=== PATIENT | male | born 1940 | race Caucasian/White ===

== ENCOUNTER 2019-03-20 22:37 | Emergency (ER) | payer OTHER, BC ==
--- NOTE | 2019-03-20 22:52 | PDOC ---
History of Present Illness - General Stated Complaint: DIARHHEA Time Seen by Provider: 03/20/19 22:43 History Source: Patient Exam Limitations: No Limitations - History of Present Illness Initial Comments: 03/20/19 22:44 [id number] with h/o dementia (reportedly non-adherent to medications), HTN, HLD, NIDDM, hyponatremia, current smoker, prior family-reported EtOH use disorder, who was BIBEMS after his daughters called for reported failure to thrive, inability to take care of himself, c/f multiple lesions on his arms, urinating and defacating on himself accidentally, all ongoing and worsening over the past year. They state they have contacted his PCP who has seen him recently and has been prescribing medication that the patient does not take. They also express concern that he is always drinking EtOH. He lives at home with his (who is disabled) and his daughters who feel increasingly unable to take care of him. EMS notes that he was disheveled and unkempt and daughters were concerned enough by his AMS to call his PCP Dr. Saba gamboa, who recommended he be brought to the ED. The patient himself denies any complaints. He denies any recent f/c/n/v/d/c, black/bloody/white stool, abdominal pain, chest pain, SOB, headache, lightheadedness, new back pain, or any other symptoms. The patient is otherwise a poor historian. Past History - Past Medical History Allergies/Adverse Reactions: Allergies Allergy/AdvReac Type Severity Reaction Status Date / Time No Known Allergies Allergy Verified 12/09/14 13:30 Home Medications: Ambulatory Orders Simvastatin [Zocor -] 20 mg PO HS 12/09/14 Atenolol/Chlorthalidone [Atenolol-Chlorthalidone 50-25] 1 each PO DAILY Gabapentin 300 mg PO DAILY 03/20/19 Haloperidol 0.5 mg PO DAILY 03/20/19 Pioglitazone HCl 30 mg PO DAILY 03/20/19 Tiotropium [place] [Spiriva] 18 mcg IH DAILY 03/20/19 GI Disorders: Yes (constipation) HTN: Yes Hypercholesterolemia: Yes - Suicide/Smoking/Psychosocial Hx Smoking History: Current every day smoker Have you smoked in the past 12 months: Yes Number of Cigarettes Smoked Daily: 10 'Breaking Loose' booklet given: 12/09/14 Hx Alcohol Use: Yes Substance Use Type: Alcohol Review of Systems - Review of Systems Able to Perform ROS?: No (dementia) *Physical Exam - Physical Exam Comments: 03/20/19 23:32 GENERAL: pleasant and conversive but disheveled, unkempt, malodorous, no distress, answers questions appropriately HEENT: PERRLA, EOMI, dry mucous membranes NECK/BACK: no midline ttp, no spinal stepoff or deformity, no hematoma, full ROM , neck supple CARDIOVASCULAR: regular rate/rhythm, normal S1S2, no MGR, strong peripheral pulses, capillary refill <2 seconds, extremities wwp, no edema LUNGS/RESPIRATORY: no respiratory distress, b/l faint expiratory wheezes GI/ABDOMEN: protuberant, symmetric [id number], normoactive BS, no ttp, no midline pulsatile masses : no CVA tenderness EXTREMITIES: no muscle atrophy, no acute deformity SKIN: warm and dry, no pallor, no jaundice, no rash, subcutaneous bleeding seen to BUE, also scattered excoriations to upper arms but no significant erythema, warmth, induration, fluctuance, etc. NEUROLOGICAL: GCS 15, CN II-XII grossly intact, 5/5 strength proximally and distally, no facial droop, seen walking to the bathroom with cane but otherwise normal gait Heart Score/ECG Review #1 03/20/19 23:35 Sinus rhythm with rate 89 and PACs, left axis deviation, RBBB, LAFB, no ST-T changes, no change from prior ED Treatment Course - LABORATORY CBC & Chemistry Diagram: 03/20/19 23:20 03/20/19 23:20 Medical Decision Making - Medical Decision Making 03/20/19 23:39 Elderly Pt p/w Initial Vital Signs Temp Pulse Resp BP Pulse Ox 98.3 F 98 H 20 140/74 97 03/20/19 23:07 03/20/19 23:07 03/20/19 23:07 03/20/19 23:07 03/20/19 23:07 Exam: As noted in Physical Exam section. DDX IBNLT: progression of dementia, CVA/TIA, infectious process (UTI, pyelonephritis, PNA/bronchitis, skin infection, meningitis), medication non- adherence, ACS, malignancy, etc. W/U ordered: Labs as noted below, EKG, CXR, HCT TX ordered: IVF, Motrin EKG: Reviewed; results as noted in ECG Review section. CXR: HCT: Labs: Reassessment: Repeat VS: ADMIT The Pt is unsafe for discharge at this time. They require further hospital observation, workup, and treatment. Microblog sent to [facility] for admission. Blank Decision to Admit order is placed per ED protocol. *DC/Admit/Observation/Transfer Diagnosis at time of Disposition: Encounter for medical screening examination - Discharge Dispostion Disposition: HOME Condition at time of disposition: Stable Decision to Admit order: No - Referrals Referrals: Ned Walter MD [Staff Physician] - - Patient Instructions Additional Instructions: You were seen in the ER because of concerns for your wellbeing, your health, and your hygeine. We did laboratory work, an EKG, a head CT, and a chest X-ray and there were no emergency findings on any of these studies. We gave you IV fluids, which you took, and we offered you IV vitamins, which you decided to refuse. After our assessment, we do not believe there is a medical emergency at this time, and we believe it is safe to go home. Please follow up with your primary care provider in 1-3 days. Call their clinic as soon as possible, tell them you were seen in the ER, and tell them you need an appointment. If there are any new or worsening symptoms, please come back to the ER at any time (24 hours a day). If the symptoms appear severe or life-threatening, please call 911 to have an ambulance take you to the ER. You need to have an appointment with Dr. Walter with your family there to help create a better plan for your health care. During this appointment, you need to have your family members be part of the discussion with yourself and Dr. Walter. You need to shower once every 2 days and wash your clothing because you are putting yourself at risk for infection by not doing this. Decrease the amount of alcohol you are drinking, and instead drink plenty of water and other fluids. Eat a healthy, balanced diet, take all of your prescribed medications as directed, and go to regular doctor's appointments. - Post Discharge Activity
[2019-03-20] MEDS ORDERED: SODIUM CHLORIDE 0.9% 500 ML INFUS.BAG IV ONE (22:56)
[2019-03-20 23:27] VITALS: BP 140/74; PULSE 98; TEMP 98.3; BMI 25.0
[2019-03-20 23:32] LABS: EOS % 3.3 % (0-4.5); HEMATOCRIT 45.6 % (35.4-49); HEMOGLOBIN 15.2 GM/dL (11.7-16.9); LYMPH % 12.4 % (8-40); MCH 33.2 pg (25.7-33.7); MCHC 33.3 g/dl (32.0-35.9); MEAN CELL VOLUME 99.7 fl (80-96); MONO % 7.2 % (3.8-10.2); NEUT % 76.1 % (42.8-82.8); PLATELET COUNT 154 K/MM3 (134-434); RBC 4.58 M/mm3 (4.00-5.60); RDW 14.3 % (11.9-15.9); WHITE BLOOD COUNT 9.1 K/mm3 (4.0-10.0)
[2019-03-20 23:47] LABS: INR 1.06 (0.83-1.09); PROTHROMBIN TIME (PATIENT) 12.5 SEC (9.7-13.0)
[2019-03-20 23:58] LABS: ALBUMIN 3.9 g/dl (3.4-5.0); BILIRUBIN,TOTAL 0.5 mg/dL (0.2-1); BLOOD UREA NITROGEN 13.5 mg/dL (7-18); CALCIUM 9.3 mg/dL (8.5-10.1); CREATININE 0.9 mg/dL (0.55-1.3); POTASSIUM 4.3 mmol/L (3.5-5.1); TOT PROT 7.8 g/dl (6.4-8.2)
--- NOTE | 2019-03-21 00:19 | PDOC ---
Documentation entered by Aisha Becerra SCRIBE, acting as scribe for Katalina Conley MD. Katalina Conley MD: This documentation has been prepared by the Mariam elliott Nirvannie, SCRIBE, under my direction and personally reviewed by me in its entirety. I confirm that the documentation accurately reflects all work, treatment, procedures, and medical decision making performed by me. Attending Attestation - Resident Resident Name: Marla Quevedo - ED Attending Attestation I have performed the following: I have examined & evaluated the patient, The case was reviewed & discussed with the resident, I agree w/resident's findings & plan - HPI HPI: 03/20/19 23:16 The patient is a 78 year old male, with a significant past medical history of dementia, HTN, HLD, hyponatremia, and former alcohol abuse, who presents to the emergency department with, AMS. As per EMS, daughters called 911 after noticing him disheveled and called his PCP Dr. Walter who advised him to the ED. Daughters notes today he urinated and defecated on himself and did not clean himself after the episode. He denies chest pain or shortness of breath. Allergies: NKDA - Physicial Exam PE: 03/21/19 00:02 GENERAL: Awake, alert, and fully oriented, in no acute distress HEAD: No signs of trauma EYES: PERRLA, EOMI, sclera anicteric, conjunctiva clear ENT: Auricles normal inspection, hearing grossly normal, nares patent, oropharynx clear without exudates. Moist mucosa NECK: Normal ROM, supple, no lymphadenopathy, JVD, or masses LUNGS: Breath sounds equal, clear to auscultation bilaterally. No wheezes, and no crackles HEART: Regular rate and rhythm, normal S1 and S2, no murmurs, rubs or gallops ABDOMEN: Soft, nontender, normoactive bowel sounds. No guarding, no rebound. No masses EXTREMITIES: Normal range of motion, no edema. No clubbing or cyanosis. No cords, erythema, or tenderness NEUROLOGICAL: Cranial nerves II through XII grossly intact. Normal speech SKIN: Warm, Dry, normal turgor, no rashes or lesions noted. - Medical Decision Making 03/21/19 00:19 Referring Physician: NOE ZIMMERMAN Patient Name: CAMILA MENDOZA THIS IS A PRELIMINARY REPORT FROM [facility] DATE OF SERVICE: 2019-03-20 23:52:26 IMAGES: 150 EXAM: CT HEAD WITHOUT CONTRAST No acute brain parenchymal abnormality. No hemorrhage, mass or acute territorial infarct. Atrophy and minimal chronic small vessel ischemic changes. Clear visualized paranasal sinuses. Visualized mastoid air cells clear. 03/21/19 00:20 All labs normal. 03/21/19 03:55 Pt has normal UA and he will be discharged home with the family. He is refusing to stay in the hospital and he is refusing alcohol detox.
[2019-03-21 01:31] LABS: EPI CELLS 0.9 /HPF (0-5/HPF); HYALINE CASTS 3 /lpf (0-8); URINE APPEARANCE CLEAR; URINE BACTERIA 2.5 /hpf (NEGATIVE); URINE BILIRUBIN NEGATIVE (NEGATIVE); URINE COLOR DK YELLOW; URINE GLUCOSE (UA) NEGATIVE (NEGATIVE); URINE KETONE 1+ (NEGATIVE); URINE LEUK ESTERASE TRACE (NEGATIVE); URINE NITRITE NEGATIVE (NEGATIVE); URINE PROTEIN TRACE (NEGATIVE); URINE RBC 2 /hpf (0-4); URINE WBC 2 /hpf (0-5)
[2019-03-21] MEDS ORDERED: FOLIC ACID INJECTION - 1 MG, THIAMINE HCL 100 MG, MULTIVIT INJECTION ADULT 10 ML in SOD... IVPB ONE (01:34)
--- NOTE | 2019-03-21 09:22 | EKG ---
Test Reason : Blood Pressure : / mmHG Vent. Rate : 089 BPM Atrial Rate : 089 BPM P-R Int : 154 ms QRS Dur : 100 ms QT Int : 392 ms P-R-T Axes : 099 -54 063 degrees QTc Int : 476 ms POOR DATA QUALITY, INTERPRETATION MAY BE ADVERSELY AFFECTED SINUS RHYTHM WITH PREMATURE ATRIAL COMPLEXES INCOMPLETE RIGHT BUNDLE BRANCH BLOCK LEFT ANTERIOR FASCICULAR BLOCK CANNOT RULE OUT ANTERIOR INFARCT , AGE UNDETERMINED ABNORMAL ECG WHEN COMPARED WITH ECG OF 11-DEC-2014 09:20, COMPARED TO EKG NO SIGNIFICANT CHANGE IS FOUND Confirmed by WILY CERRATO MD ([id number]) on 03/21/2019 9:21:55 AM Referred By: Confirmed By:WILY CERRATO MD
== END 2019-03-21 02:46 | disposition home or self-care (01) ==
LOC: JER 22:37
PROC: 3E0337Z Introduction of Electrolytic and Water Balance Substance into Peripheral Vein, Percutaneous Approach (ICD-10-PCS; principal; 2019-03-20)
DX: Z13.9 Encounter for screening, unspecified (principal); I10 Essential (primary) hypertension; E78.5 Hyperlipidemia, unspecified; E11.9 Type 2 diabetes mellitus without complications; E87.1 Hypo-osmolality and hyponatremia; F17.210 Nicotine dependence, cigarettes, uncomplicated
CPT/HCPCS: 36415; 70450-TC; 71045-TC-FY; 80053; 80307; 81003; 84484; 85025; 85610; 93005; 93010; 99283-25; J7030

== ENCOUNTER 2020-12-03 09:50 | Inpatient (IN) | payer OTHER, BC ==
[2020-12-03 11:34] LABS: BASO % 1.5 % (0-2.0); EOS % 3.6 % (0-4.5); HEMATOCRIT 36.9 % (35.4-49); HEMOGLOBIN 12.5 GM/dL (11.7-16.9); MCH 30.3 pg (25.7-33.7); MCHC 33.8 g/dl (32.0-35.9); MEAN CELL VOLUME 89.6 fl (80-96); MEAN PLT VOLUME 10.4 fl (7.5-11.1); MONO % 10.2 % (3.8-10.2); NEUT % 68.7 % (42.8-82.8); PLATELET COUNT 231 K/MM3 (134-434); RBC 4.12 M/mm3 (4.00-5.60); RDW 16.1 % (11.9-15.9)
[2020-12-03 11:43] LABS: INR 1.18 (0.83-1.09); PROTHROMBIN TIME (PATIENT) 14.2 SEC (9.7-13.0)
[2020-12-03 11:45] LABS: ACTIVATED PTT 33.1 SECONDS (25.2-36.5)
[2020-12-03 12:05] LABS: CALCIUM 9.6 mg/dL (8.5-10.1)
[2020-12-03 12:06] LABS: ALBUMIN 3.6 g/dl (3.4-5.0); BLOOD UREA NITROGEN 13.7 mg/dL (7-18)
[2020-12-03 12:09] LABS: CREATININE 0.7 mg/dL (0.55-1.3)
[2020-12-03 12:10] LABS: BILIRUBIN,TOTAL 0.8 mg/dL (0.2-1)
[2020-12-03 12:11] LABS: TOT PROT 7.7 g/dl (6.4-8.2)
[2020-12-03] MEDS ORDERED: SODIUM CHLORIDE 0.9% 500 ML INFUS.BAG IV ONE (12:51)
[2020-12-03] MEDS ORDERED: VANCOMYCIN 1,000 MG in DEXTROSE 5%-WATER - 250 ML IVPB ONE (12:51)
[2020-12-03] MEDS ORDERED: PIPERACILLIN/TAZOB 4.5 GM 4.5 GM in DEXTROSE 5%-WATER 100 ML IVPB ONE (12:51)
[2020-12-03 13:05] LABS: ERYTHROCYTE SEDIMENTATION RATE 78 mm/hr (0-20)
[2020-12-03] MEDS ORDERED: PIPERACILLIN/TAZOB 4.5 GM 4.5 GM/100 ML BAG IVPB ONE (13:36)
[2020-12-03] MEDS ORDERED: VANCOMYCIN 1 GRAM (PRE-DOCKED) 1,000 MG/250 ML BAG IVPB ONE (13:37)
[2020-12-03] MEDS: HEPARIN NA (PORCINE) 5,000 UNITS/ML 1ML VIAL SQ SCH (19:59)
[2020-12-04 01:24] VITALS: BMI 23.6
[2020-12-04] MEDS ORDERED: CEFAZOLIN 1 GM in DEXTROSE 5%-WATER - 50 ML IVPB SCH (02:00)
[2020-12-04] MEDS: HEPARIN NA (PORCINE) 5,000 UNITS/ML 1ML VIAL SQ SCH ×3 (02:36→21:31)
[2020-12-04] MEDS ORDERED: DEXTROSE 5%-WATER - 50 ML IVPB ONE ×2 (02:47→11:11)
[2020-12-04] MEDS: CEFTRIAXONE 2 GM in DEXTROSE 5%-WATER - 2 GM/50 ML IVPB IVPB SCH ×2 (02:55→11:23)
[2020-12-04 08:53] LABS: BASO % 1.2 % (0-2.0); EOS % 4.8 % (0-4.5); HEMOGLOBIN 11.2 GM/dL (11.7-16.9); LYMPH % 20.6 % (8-40); MCH 30.4 pg (25.7-33.7); MCHC 34.1 g/dl (32.0-35.9); MEAN CELL VOLUME 89.1 fl (80-96); MEAN PLT VOLUME 10.2 fl (7.5-11.1); MONO % 11.2 % (3.8-10.2); NEUT % 62.2 % (42.8-82.8); PLATELET COUNT 196 K/MM3 (134-434); WHITE BLOOD COUNT 6.7 K/mm3 (4.0-10.0)
[2020-12-04 09:28] LABS: ALBUMIN 2.8 g/dl (3.4-5.0); BLOOD UREA NITROGEN 13.3 mg/dL (7-18); CALCIUM 9.1 mg/dL (8.5-10.1)
[2020-12-04 09:29] LABS: MAGNESIUM 1.6 mg/dL (1.8-2.4)
[2020-12-04 09:32] LABS: CREATININE 0.5 mg/dL (0.55-1.3); PHOSPHOROUS 3.6 mg/dL (2.5-4.9)
[2020-12-04 09:33] LABS: BILIRUBIN,TOTAL 0.5 mg/dL (0.2-1); TOT PROT 6.6 g/dl (6.4-8.2)
[2020-12-04] MEDS ORDERED: MAGNESIUM 1GM/D5W - 1 GM/100 ML IVPB IVPB ONE (10:00)
[2020-12-04] MEDS: ATORVASTATIN CA 10 MG TABLET (FP) PO SCH (21:31)
[2020-12-04] MEDS: QUEtiapine FUMARATE 25 MG TABLET PO SCH (21:31)
[2020-12-05] MEDS: HEPARIN NA (PORCINE) 5,000 UNITS/ML 1ML VIAL SQ SCH ×3 (06:00→21:02)
[2020-12-05 08:13] LABS: HEMATOCRIT 34.1 % (35.4-49); HEMOGLOBIN 11.5 GM/dL (11.7-16.9); MCH 30.3 pg (25.7-33.7); MCHC 33.7 g/dl (32.0-35.9); MEAN CELL VOLUME 89.9 fl (80-96); MEAN PLT VOLUME 10.4 fl (7.5-11.1); PLATELET COUNT 190 K/MM3 (134-434); RBC 3.79 M/mm3 (4.00-5.60); WHITE BLOOD COUNT 5.1 K/mm3 (4.0-10.0)
[2020-12-05] MEDS ORDERED: DEXTROSE 5%-WATER - 50 ML IVPB ONE (08:31)
[2020-12-05 08:35] LABS: ALBUMIN 2.8 g/dl (3.4-5.0); BLOOD UREA NITROGEN 14.8 mg/dL (7-18)
[2020-12-05 08:38] LABS: CREATININE 0.5 mg/dL (0.55-1.3); PHOSPHOROUS 3.8 mg/dL (2.5-4.9)
[2020-12-05 08:39] LABS: BILIRUBIN,TOTAL 0.4 mg/dL (0.2-1)
[2020-12-05 08:40] LABS: TOT PROT 6.7 g/dl (6.4-8.2)
[2020-12-05] MEDS: ZINC OXIDE/PANTHENOL/VITAMIN E 56 GM TUBE TP SCH (09:31)
[2020-12-05] MEDS: CEFTRIAXONE 2 GM in DEXTROSE 5%-WATER - 2 GM/50 ML IVPB IVPB SCH (09:41)
[2020-12-05] MEDS: CYANOCOBALAMIN 1,000 MCG TABLET (FP) PO SCH (09:42)
[2020-12-05] MEDS: QUEtiapine FUMARATE 25 MG TABLET PO SCH ×2 (09:42→21:02)
[2020-12-05] MEDS: CLOTRIMAZOLE 1% CREAM 15 GM TUBE TP SCH ×2 (11:11→21:03)
[2020-12-05] MEDS: ATORVASTATIN CA 10 MG TABLET (FP) PO SCH (21:03)
[2020-12-06] MEDS: HEPARIN NA (PORCINE) 5,000 UNITS/ML 1ML VIAL SQ SCH ×3 (05:41→22:24)
[2020-12-06] MEDS ORDERED: DEXTROSE 5%-WATER - 50 ML IVPB ONE (08:52)
[2020-12-06] MEDS: CLOTRIMAZOLE 1% CREAM 15 GM TUBE TP SCH ×2 (09:36→22:26)
[2020-12-06] MEDS: ZINC OXIDE/PANTHENOL/VITAMIN E 56 GM TUBE TP SCH (09:36)
[2020-12-06] MEDS: CEFTRIAXONE 2 GM in DEXTROSE 5%-WATER - 2 GM/50 ML IVPB IVPB SCH (09:37)
[2020-12-06] MEDS: CYANOCOBALAMIN 1,000 MCG TABLET (FP) PO SCH (09:37)
[2020-12-06] MEDS: QUEtiapine FUMARATE 25 MG TABLET PO SCH ×2 (09:37→22:24)
[2020-12-06] MEDS: COLLAGENASE CLOSTRIDIUM HIST. 30 GRAMS TUBE TP SCH (09:38)
[2020-12-06] MEDS: AMINO ACIDS/PROTEIN HYDROLYS 30 ML LIQUID.PKT PO SCH (16:40)
[2020-12-06] MEDS: ATORVASTATIN CA 10 MG TABLET (FP) PO SCH (22:24)
[2020-12-07] MEDS: HEPARIN NA (PORCINE) 5,000 UNITS/ML 1ML VIAL SQ SCH ×3 (05:23→20:59)
[2020-12-07] MEDS ORDERED: DEXTROSE 5%-WATER - 50 ML IVPB ONE (08:55)
[2020-12-07] MEDS: MULTIVITAMINS (DAILY MVI) TABLET (FP) PO SCH (09:05)
[2020-12-07] MEDS: CEFTRIAXONE 2 GM in DEXTROSE 5%-WATER - 2 GM/50 ML IVPB IVPB SCH (09:05)
[2020-12-07] MEDS: AMINO ACIDS/PROTEIN HYDROLYS 30 ML LIQUID.PKT PO SCH ×2 (09:05→17:31)
[2020-12-07] MEDS: CYANOCOBALAMIN 1,000 MCG TABLET (FP) PO SCH (09:05)
[2020-12-07] MEDS: QUEtiapine FUMARATE 25 MG TABLET PO SCH ×2 (09:05→21:01)
[2020-12-07] MEDS: ZINC OXIDE/PANTHENOL/VITAMIN E 56 GM TUBE TP SCH (09:06)
[2020-12-07] MEDS: COLLAGENASE CLOSTRIDIUM HIST. 30 GRAMS TUBE TP SCH (09:07)
[2020-12-07] MEDS: CLOTRIMAZOLE 1% CREAM 15 GM TUBE TP SCH ×2 (09:07→21:02)
[2020-12-07] MEDS ORDERED: ACETAMINOPHEN 325 MG TABLET (FP) PO PRN (16:03)
[2020-12-07] MEDS ORDERED: PT OWN MED DRAWER 7, Y5N ONE (20:43)
[2020-12-07] MEDS: ATORVASTATIN CA 10 MG TABLET (FP) PO SCH (21:00)
[2020-12-08] MEDS: HEPARIN NA (PORCINE) 5,000 UNITS/ML 1ML VIAL SQ SCH ×3 (05:56→22:01)
[2020-12-08 08:24] LABS: HEMATOCRIT 36.8 % (35.4-49); HEMOGLOBIN 12.4 GM/dL (11.7-16.9); MCH 30.2 pg (25.7-33.7); MCHC 33.7 g/dl (32.0-35.9); MEAN CELL VOLUME 89.8 fl (80-96); MEAN PLT VOLUME 10.4 fl (7.5-11.1); PLATELET COUNT 188 K/MM3 (134-434); RDW 16.1 % (11.9-15.9)
[2020-12-08] MEDS ORDERED: DEXTROSE 5%-WATER - 50 ML IVPB ONE (08:38)
[2020-12-08 08:49] LABS: ALBUMIN 3.2 g/dl (3.4-5.0); CALCIUM 9.4 mg/dL (8.5-10.1)
[2020-12-08 08:51] LABS: BLOOD UREA NITROGEN 18.8 mg/dL (7-18); MAGNESIUM 2.1 mg/dL (1.8-2.4)
[2020-12-08 08:54] LABS: CREATININE 0.7 mg/dL (0.55-1.3); PHOSPHOROUS 3.9 mg/dL (2.5-4.9)
[2020-12-08 08:55] LABS: BILIRUBIN,TOTAL 0.4 mg/dL (0.2-1); TOT PROT 7.3 g/dl (6.4-8.2)
[2020-12-08] MEDS: CEFTRIAXONE 2 GM in DEXTROSE 5%-WATER - 2 GM/50 ML IVPB IVPB SCH (09:13)
[2020-12-08] MEDS: CYANOCOBALAMIN 1,000 MCG TABLET (FP) PO SCH (09:15)
[2020-12-08] MEDS: MULTIVITAMINS (DAILY MVI) TABLET (FP) PO SCH (09:15)
[2020-12-08] MEDS: AMINO ACIDS/PROTEIN HYDROLYS 30 ML LIQUID.PKT PO SCH ×2 (09:16→16:53)
[2020-12-08] MEDS: ZINC OXIDE/PANTHENOL/VITAMIN E 56 GM TUBE TP SCH (09:17)
[2020-12-08] MEDS: CLOTRIMAZOLE 1% CREAM 15 GM TUBE TP SCH ×2 (09:19→22:01)
[2020-12-08] MEDS: COLLAGENASE CLOSTRIDIUM HIST. 30 GRAMS TUBE TP SCH (09:19)
[2020-12-08] MEDS: QUEtiapine FUMARATE 25 MG TABLET PO SCH ×2 (09:20→22:00)
[2020-12-08] MEDS: ATORVASTATIN CA 10 MG TABLET (FP) PO SCH (22:00)
[2020-12-09] MEDS: HEPARIN NA (PORCINE) 5,000 UNITS/ML 1ML VIAL SQ SCH ×3 (05:12→22:13)
[2020-12-09 07:34] LABS: HEMATOCRIT 36.1 % (35.4-49); MCH 29.9 pg (25.7-33.7); MCHC 33.3 g/dl (32.0-35.9); MEAN CELL VOLUME 89.6 fl (80-96); MEAN PLT VOLUME 10.5 fl (7.5-11.1); PLATELET COUNT 172 K/MM3 (134-434); RBC 4.03 M/mm3 (4.00-5.60); WHITE BLOOD COUNT 6.7 K/mm3 (4.0-10.0)
[2020-12-09 08:00] LABS: BLOOD UREA NITROGEN 23.2 mg/dL (7-18); CALCIUM 9.3 mg/dL (8.5-10.1); MAGNESIUM 1.9 mg/dL (1.8-2.4)
[2020-12-09 08:04] LABS: CREATININE 0.6 mg/dL (0.55-1.3); PHOSPHOROUS 3.8 mg/dL (2.5-4.9)
[2020-12-09] MEDS ORDERED: DEXTROSE 5%-WATER 100 ML IVPB ONE (10:04)
[2020-12-09] MEDS: COLLAGENASE CLOSTRIDIUM HIST. 30 GRAMS TUBE TP SCH (10:12)
[2020-12-09] MEDS: ZINC OXIDE/PANTHENOL/VITAMIN E 56 GM TUBE TP SCH (10:12)
[2020-12-09] MEDS: CLOTRIMAZOLE 1% CREAM 15 GM TUBE TP SCH ×2 (10:12→22:15)
[2020-12-09] MEDS: AMINO ACIDS/PROTEIN HYDROLYS 30 ML LIQUID.PKT PO SCH ×2 (10:12→16:51)
[2020-12-09] MEDS: CEFTRIAXONE 2 GM in DEXTROSE 5%-WATER 100 ML IVPB SCH (10:13)
[2020-12-09] MEDS: QUEtiapine FUMARATE 25 MG TABLET PO SCH ×2 (10:13→22:14)
[2020-12-09] MEDS: CYANOCOBALAMIN 1,000 MCG TABLET (FP) PO SCH (10:13)
[2020-12-09] MEDS: MULTIVITAMINS (DAILY MVI) TABLET (FP) PO SCH (10:13)
[2020-12-09] MEDS: VANCOMYCIN 1 GRAM (PRE-DOCKED) 1,000 MG/250 ML BAG IVPB SCH (16:13)
[2020-12-09] MEDS: ATORVASTATIN CA 10 MG TABLET (FP) PO SCH (22:13)
[2020-12-10] MEDS: HEPARIN NA (PORCINE) 5,000 UNITS/ML 1ML VIAL SQ SCH ×2 (05:14→14:52)
[2020-12-10 06:04] VITALS: PULSE 56
[2020-12-10] MEDS ORDERED: PT OWN MED DRAWER 7, Y5N ONE ×2 (09:23→17:14)
[2020-12-10] MEDS ORDERED: DEXTROSE 5%-WATER 100 ML IVPB ONE (09:23)
[2020-12-10] MEDS: AMINO ACIDS/PROTEIN HYDROLYS 30 ML LIQUID.PKT PO SCH ×2 (09:30→17:05)
[2020-12-10] MEDS: CLOTRIMAZOLE 1% CREAM 15 GM TUBE TP SCH (09:30)
[2020-12-10] MEDS: COLLAGENASE CLOSTRIDIUM HIST. 30 GRAMS TUBE TP SCH (09:31)
[2020-12-10] MEDS: ZINC OXIDE/PANTHENOL/VITAMIN E 56 GM TUBE TP SCH (09:31)
[2020-12-10] MEDS: CYANOCOBALAMIN 1,000 MCG TABLET (FP) PO SCH (09:32)
[2020-12-10] MEDS: MULTIVITAMINS (DAILY MVI) TABLET (FP) PO SCH (09:32)
[2020-12-10] MEDS: CEFTRIAXONE 2 GM in DEXTROSE 5%-WATER 100 ML IVPB SCH (09:32)
[2020-12-10] MEDS: QUEtiapine FUMARATE 25 MG TABLET PO SCH (09:32)
[2020-12-10 11:02] LABS: HEMATOCRIT 36.7 % (35.4-49); HEMOGLOBIN 12.3 GM/dL (11.7-16.9); MCHC 33.4 g/dl (32.0-35.9); MEAN CELL VOLUME 89.8 fl (80-96); MEAN PLT VOLUME 10.2 fl (7.5-11.1); PLATELET COUNT 186 K/MM3 (134-434); RBC 4.09 M/mm3 (4.00-5.60); RDW 16.1 % (11.9-15.9); WHITE BLOOD COUNT 6.3 K/mm3 (4.0-10.0)
[2020-12-10 11:09] LABS: INR 1.17 (0.83-1.09); PROTHROMBIN TIME (PATIENT) 14.3 SEC (9.7-13.0)
[2020-12-10 11:30] LABS: CALCIUM 9.1 mg/dL (8.5-10.1)
[2020-12-10 11:31] LABS: BLOOD UREA NITROGEN 24.5 mg/dL (7-18)
[2020-12-10 11:34] LABS: CREATININE 0.7 mg/dL (0.55-1.3)
[2020-12-10 14:40] VITALS: BP 114/57; TEMP 97.5
[2020-12-10] MEDS: VANCOMYCIN 1 GRAM (PRE-DOCKED) 1,000 MG/250 ML BAG IVPB SCH (16:58)
== END 2020-12-10 20:45 | DRG 638 ==
LOC: JER 09:50 → JERBED 13:42 → J7W 12-04 00:08
PROVIDERS: ADMIT Internal Medicine; ATTEND Internal Medicine
PROC: 02HV33Z Insertion of Infusion Device into Superior Vena Cava, Percutaneous Approach (ICD-10-PCS; principal; 2020-12-10)
PROC: B518ZZA Fluoroscopy of Superior Vena Cava, Guidance (ICD-10-PCS; 2020-12-10)
DX: E11.69 Type 2 diabetes mellitus with other specified complication (principal); M86.9 Osteomyelitis, unspecified; L03.115 Cellulitis of right lower limb; L03.116 Cellulitis of left lower limb; E11.52 Type 2 diabetes mellitus with diabetic peripheral angiopathy with gangrene; L89.152 Pressure ulcer of sacral region, stage 2; I10 Essential (primary) hypertension; E78.5 Hyperlipidemia, unspecified; F03.90 Unspecified dementia, unspecified severity, without behavioral disturbance, psychotic disturbance, mood disturbance, and anxiety; B35.1 Tinea unguium; F17.210 Nicotine dependence, cigarettes, uncomplicated
CPT/HCPCS: 36415; 36569; 71045-TC-FY; 73590-TC-LT-FY; 73590-TC-RT-FY; 73630-TC-LT; 73630-TC-RT-FY; 73718-TC-LT; 80048; 80053; 82962; 83036; 83735; 84100; 85025; 85027; 85610; 85651; 85730; 86140; 86850; 86900; 86901; 87040; 87070; 87186; 87205; 93005; 93010; 93970-TC; 97116-GP; 97162-GP; 99285-25; C9803; J1644; U0003; U0005

== ENCOUNTER 2021-08-15 12:38 | Inpatient (IN) | payer OTHER, BC ==
[2021-08-15 15:23] LABS: BASO % 1.8 % (0-2.0); EOS % 5.2 % (0-4.5); HEMATOCRIT 40.5 % (35.4-49); HEMOGLOBIN 13.6 GM/dL (11.7-16.9); LYMPH % 15.8 % (8-40); MCH 30.9 pg (25.7-33.7); MCHC 33.4 g/dl (32.0-35.9); MEAN CELL VOLUME 92.4 fl (80-96); MEAN PLT VOLUME 10.7 fl (7.5-11.1); MONO % 6.9 % (3.8-10.2); NEUT % 70.3 % (42.8-82.8); PLATELET COUNT 176 10^3/uL (134-434); RBC 4.39 M/mm3 (4.00-5.60); RDW 14.9 % (11.9-15.9); WHITE BLOOD COUNT 10.4 K/mm3 (4.0-10.0)
[2021-08-15 15:28] LABS: INR 1.19 (0.83-1.09); PROTHROMBIN TIME (PATIENT) 13.9 SEC (9.7-13.0)
[2021-08-15 15:31] LABS: ACTIVATED PTT 29.3 SECONDS (25.2-36.5)
[2021-08-15 15:40] LABS: CHLORIDE 104 mmol/L (98-107); SODIUM 136 mmol/L (136-145)
[2021-08-15 15:42] LABS: ANION GAP 5 MMOL/L (8-16); CALCIUM 9.6 mg/dL (8.5-10.1); CO2 27 mmol/L (21-32); GLUCOSE,RANDOM 104 mg/dL (74-106)
[2021-08-15 15:43] LABS: ALBUMIN 3.8 g/dl (3.4-5.0); BLOOD UREA NITROGEN 13.2 mg/dL (7-18)
[2021-08-15 15:45] LABS: SGPT/ALT 22 U/L (13-61)
[2021-08-15 15:46] LABS: CREATININE 0.8 mg/dL (0.55-1.3); SGOT/AST 30 U/L (15-37)
[2021-08-15 15:47] LABS: BILIRUBIN,TOTAL 0.6 mg/dL (0.2-1); TOT PROT 8.4 g/dl (6.4-8.2)
[2021-08-15 15:48] LABS: ALK PHOS 53 U/L (45-117)
[2021-08-16 08:07] LABS: HEMATOCRIT 37.2 % (35.4-49); HEMOGLOBIN 12.6 GM/dL (11.7-16.9); MCH 31.4 pg (25.7-33.7); MEAN CELL VOLUME 92.5 fl (80-96); MEAN PLT VOLUME 10.4 fl (7.5-11.1); PLATELET COUNT 156 10^3/uL (134-434); RBC 4.02 M/mm3 (4.00-5.60); RDW 14.7 % (11.9-15.9); WHITE BLOOD COUNT 7.9 K/mm3 (4.0-10.0)
[2021-08-16 08:24] LABS: BLOOD UREA NITROGEN 16.9 mg/dL (7-18)
[2021-08-16 08:26] LABS: CALCIUM 9.1 mg/dL (8.5-10.1)
[2021-08-16 08:28] LABS: PHOSPHOROUS 3.7 mg/dL (2.5-4.9)
[2021-08-16 08:30] LABS: CREATININE 0.7 mg/dL (0.55-1.3)
[2021-08-16 17:53] VITALS: BMI 23.7
[2021-08-17 10:40] LABS: HEMATOCRIT 39.3 % (35.4-49); HEMOGLOBIN 13.4 GM/dL (11.7-16.9); MCH 31.6 pg (25.7-33.7); MCHC 34.2 g/dl (32.0-35.9); MEAN CELL VOLUME 92.3 fl (80-96); MEAN PLT VOLUME 10.2 fl (7.5-11.1); PLATELET COUNT 157 10^3/uL (134-434); RBC 4.26 M/mm3 (4.00-5.60); RDW 14.6 % (11.9-15.9); WHITE BLOOD COUNT 6.9 K/mm3 (4.0-10.0)
[2021-08-17 11:01] LABS: CALCIUM 9.1 mg/dL (8.5-10.1)
[2021-08-17 11:02] LABS: BLOOD UREA NITROGEN 16.5 mg/dL (7-18)
[2021-08-17 11:05] LABS: CREATININE 0.7 mg/dL (0.55-1.3)
[2021-08-18 08:00] LABS: HEMATOCRIT 36.2 % (35.4-49); HEMOGLOBIN 12.5 GM/dL (11.7-16.9); MCH 31.6 pg (25.7-33.7); MCHC 34.6 g/dl (32.0-35.9); MEAN CELL VOLUME 91.5 fl (80-96); MEAN PLT VOLUME 10.3 fl (7.5-11.1); PLATELET COUNT 151 10^3/uL (134-434); RBC 3.96 M/mm3 (4.00-5.60); RDW 14.2 % (11.9-15.9); WHITE BLOOD COUNT 6.1 K/mm3 (4.0-10.0)
[2021-08-18 08:03] LABS: ALBUMIN 3.2 g/dl (3.4-5.0); BLOOD UREA NITROGEN 19.5 mg/dL (7-18)
[2021-08-18 08:06] LABS: CREATININE 0.7 mg/dL (0.55-1.3)
[2021-08-18 08:08] LABS: BILIRUBIN,TOTAL 0.5 mg/dL (0.2-1); TOT PROT 6.6 g/dl (6.4-8.2)
[2021-08-19 09:24] LABS: HEMATOCRIT 41.1 % (35.4-49); HEMOGLOBIN 13.7 GM/dL (11.7-16.9); MCH 31.3 pg (25.7-33.7); MCHC 33.4 g/dl (32.0-35.9); MEAN CELL VOLUME 93.7 fl (80-96); MEAN PLT VOLUME 11.1 fl (7.5-11.1); PLATELET COUNT 171 10^3/uL (134-434); RBC 4.39 M/mm3 (4.00-5.60); RDW 14.3 % (11.9-15.9)
[2021-08-19 09:58] LABS: CALCIUM 9.3 mg/dL (8.5-10.1)
[2021-08-19 10:00] LABS: BLOOD UREA NITROGEN 23.8 mg/dL (7-18)
[2021-08-19 10:04] LABS: ALBUMIN 3.4 g/dl (3.4-5.0)
[2021-08-19 10:07] LABS: CREATININE 0.7 mg/dL (0.55-1.3)
[2021-08-19 10:08] LABS: TOT PROT 7.4 g/dl (6.4-8.2)
[2021-08-19 10:26] LABS: BILIRUBIN,TOTAL 0.6 mg/dL (0.2-1)
[2021-08-19 10:56] VITALS: BP 135/76; PULSE 78; TEMP 98
== END 2021-08-19 19:24 | disposition home or self-care (01) | DRG 638 ==
LOC: JER 12:38 → JERBED 16:10 → J7W 08-16 03:47
PROVIDERS: ADMIT Internal Medicine; ATTEND Internal Medicine
DX: E11.621 Type 2 diabetes mellitus with foot ulcer (principal); M86.9 Osteomyelitis, unspecified; L03.115 Cellulitis of right lower limb; L03.116 Cellulitis of left lower limb; E11.69 Type 2 diabetes mellitus with other specified complication; L97.529 Non-pressure chronic ulcer of other part of left foot with unspecified severity; E78.5 Hyperlipidemia, unspecified; I10 Essential (primary) hypertension; F03.90 Unspecified dementia, unspecified severity, without behavioral disturbance, psychotic disturbance, mood disturbance, and anxiety; F17.210 Nicotine dependence, cigarettes, uncomplicated; E83.52 Hypercalcemia; B35.1 Tinea unguium
CPT/HCPCS: 36415; 71046-TC-FY; 73610-TC-LT-FY; 73610-TC-RT-FY; 73630-TC-LT; 73630-TC-RT-FY; 73718-TC-LT; 80048; 80053; 82962; 83036; 83605; 83735; 84100; 84484; 85025; 85027; 85610; 85651; 85730; 86140; 87040; 93005; 93010; 99285-25; C9803; U0003; U0005

== ENCOUNTER 2021-10-03 15:15 | Inpatient (IN) | payer OTHER, BC ==
[2021-10-03 17:26] LABS: PH,URINE 6.5 (5.0-8.0); URINE APPEARANCE CLEAR; URINE BILIRUBIN NEGATIVE (NEGATIVE); URINE COLOR YELLOW; URINE GLUCOSE (UA) NEGATIVE (NEGATIVE); URINE KETONE NEGATIVE (NEGATIVE); URINE LEUK ESTERASE NEGATIVE (NEGATIVE); URINE NITRITE NEGATIVE (NEGATIVE); URINE PROTEIN NEGATIVE (NEGATIVE)
[2021-10-03 18:01] LABS: VENOUS O2 SATURATION 59.6 % (70-80); VENOUS PCO2 54.9 mmHg (38-52); VENOUS PH 7.338 (7.310-7.410)
[2021-10-03 18:39] LABS: BASO % 0.7 % (0-2.0); EOS % 3.3 % (0-4.5); HEMATOCRIT 34.8 % (35.4-49); HEMOGLOBIN 11.6 GM/dL (11.7-16.9); LYMPH % 9.7 % (8-40); MCH 29.8 pg (25.7-33.7); MCHC 33.4 g/dl (32.0-35.9); MEAN CELL VOLUME 89.3 fl (80-96); MEAN PLT VOLUME 8.9 fl (7.5-11.1); MONO % 8.8 % (3.8-10.2); NEUT % 77.5 % (42.8-82.8); PLATELET COUNT 290 10^3/uL (134-434); RDW 15.1 % (11.9-15.9); WHITE BLOOD COUNT 11.5 K/mm3 (4.0-10.0)
[2021-10-03] MEDS ORDERED: CLINDAMYCIN 600MG PREMIX IVPB 600 MG/50 ML BAG IVPB ONE ×2 (18:45→19:11)
[2021-10-03 18:46] LABS: INR 1.4 (0.83-1.09); PROTHROMBIN TIME (PATIENT) 16.2 SEC (9.7-13.0)
[2021-10-03 18:49] LABS: ACTIVATED PTT 31.7 SECONDS (25.2-36.5)
[2021-10-03 18:59] LABS: ALBUMIN 2.7 g/dl (3.4-5.0); CALCIUM 8.9 mg/dL (8.5-10.1)
[2021-10-03 19:00] LABS: BLOOD UREA NITROGEN 9.3 mg/dL (7-18)
[2021-10-03 19:03] LABS: CREATININE 0.6 mg/dL (0.55-1.3)
[2021-10-03 19:04] LABS: BILIRUBIN,TOTAL 0.6 mg/dL (0.2-1)
[2021-10-04] MEDS ORDERED: VANCOMYCIN 1 GM in D5W (PRE-DOCKED) 1,000 MG/250 ML IVPB SCH (00:15)
[2021-10-04] MEDS ORDERED: CLINDAMYCIN 600MG PREMIX IVPB 600 MG/50 ML BAG IVPB SCH (04:00)
[2021-10-04] MEDS ORDERED: PIPERACILLIN/TAZOBACTAM 3.375 GM VIAL IVPB ONE ×3 (06:22→17:10)
[2021-10-04] MEDS: PIPERACILLIN/TAZOB 3.375 GM 3.375 GM in DEXTROSE 5%-WATER - 50 ML IVPB SCH ×3 (06:26→17:21)
[2021-10-04] MEDS: NICOTINE 21 MG/24 HOURS TOPICAL PATCH TD SCH ×2 (06:43→11:08)
[2021-10-04] MEDS: INSULIN SLIDING SCALE (NOVOLOG) 1 VIAL SQ SCH ×4 (07:35→21:49)
[2021-10-04 08:25] LABS: BASO % 0.6 % (0-2.0); EOS % 3.7 % (0-4.5); LYMPH % 7.5 % (8-40); MCH 30.5 pg (25.7-33.7); MCHC 34.2 g/dl (32.0-35.9); MEAN CELL VOLUME 89.2 fl (80-96); MEAN PLT VOLUME 9.6 fl (7.5-11.1); MONO % 6.2 % (3.8-10.2); PLATELET COUNT 271 10^3/uL (134-434); RBC 3.59 M/mm3 (4.00-5.60); RDW 14.7 % (11.9-15.9); WHITE BLOOD COUNT 9.3 K/mm3 (4.0-10.0)
[2021-10-04 08:48] LABS: ALBUMIN 2.4 g/dl (3.4-5.0); BLOOD UREA NITROGEN 9.1 mg/dL (7-18)
[2021-10-04 08:49] LABS: CALCIUM 8.5 mg/dL (8.5-10.1); MAGNESIUM 1.7 mg/dL (1.8-2.4)
[2021-10-04 08:51] LABS: CREATININE 0.6 mg/dL (0.55-1.3)
[2021-10-04 08:52] LABS: PHOSPHOROUS 3.9 mg/dL (2.5-4.9)
[2021-10-04 08:53] LABS: BILIRUBIN,TOTAL 0.5 mg/dL (0.2-1); TOT PROT 6.3 g/dl (6.4-8.2)
[2021-10-04 09:27] LABS: ERYTHROCYTE SEDIMENTATION RATE 66 mm/hr (0-20)
[2021-10-04] MEDS ORDERED: HALOPERIDOL 1 MG TABLET PO SCH (10:00)
[2021-10-04] MEDS ORDERED: metoPROLOL SUCCINATE 25 MG TAB.SR.24H (FP) PO SCH (10:00)
[2021-10-04] MEDS ORDERED: ENOXAPARIN NA (PORCINE) 40 MG/0.4 ML DISP.SYRIN SQ SCH (10:00)
[2021-10-04] MEDS: APIXABAN 5 MG TABLET PO SCH ×2 (11:07→21:32)
[2021-10-04] MEDS ORDERED: DEXTROSE 5%-WATER - 50 ML IVPB ONE ×2 (11:11→17:10)
[2021-10-04] MEDS ORDERED: MAGNESIUM SULF 50% (8.12 MEQ/2 ML-1 GM VIAL) IVPB ONE (12:38)
[2021-10-04] MEDS: FINASTERIDE 5 MG TABLET (FP) PO SCH (13:56)
[2021-10-04] MEDS: TAMSULOSIN HCL 0.4 MG CAP PO SCH (13:56)
[2021-10-04] MEDS: FUROSEMIDE 40 MG/4 ML INJECTABLE VIAL IVPUSH SCH (13:56)
[2021-10-04] MEDS ORDERED: HALOPERIDOL 1 MG TABLET PO ONE (15:11)
[2021-10-04] MEDS ORDERED: MAGNESIUM OXIDE 400 MG TABLET (FP) PO ONE (15:32)
[2021-10-04] MEDS: HALOPERIDOL 0.5 MG TABLET PO SCH (21:32)
[2021-10-04] MEDS ORDERED: HALOPERIDOL 0.5 MG TABLET PO SCH (22:00)
[2021-10-04] MEDS ORDERED: metFORMIN HCL 500 MG TABLET (FP) PO SCH (22:00)
[2021-10-05] MEDS ORDERED: VANCOMYCIN 1 GM in D5W (PRE-DOCKED) 1,000 MG/250 ML IVPB SCH (00:15)
[2021-10-05] MEDS ORDERED: LORazepam 2 MG/ML SDV VIAL IVPUSH ONE (01:07)
[2021-10-05] MEDS: INSULIN SLIDING SCALE (NOVOLOG) 1 VIAL SQ SCH ×4 (07:12→22:17)
[2021-10-05 08:51] LABS: HEMATOCRIT 30.8 % (35.4-49); HEMOGLOBIN 10.2 GM/dL (11.7-16.9); MCH 29.5 pg (25.7-33.7); MCHC 33.2 g/dl (32.0-35.9); MEAN PLT VOLUME 9.1 fl (7.5-11.1); PLATELET COUNT 257 10^3/uL (134-434); RBC 3.46 M/mm3 (4.00-5.60); RDW 14.9 % (11.9-15.9); WHITE BLOOD COUNT 8.7 K/mm3 (4.0-10.0)
[2021-10-05 09:13] LABS: CALCIUM 8.2 mg/dL (8.5-10.1)
[2021-10-05 09:14] LABS: ALBUMIN 2.4 g/dl (3.4-5.0); BLOOD UREA NITROGEN 13.2 mg/dL (7-18)
[2021-10-05 09:16] LABS: PHOSPHOROUS 3.4 mg/dL (2.5-4.9)
[2021-10-05 09:17] LABS: CREATININE 0.7 mg/dL (0.55-1.3)
[2021-10-05 09:18] LABS: BILIRUBIN,TOTAL 0.8 mg/dL (0.2-1); TOT PROT 6.2 g/dl (6.4-8.2)
[2021-10-05] MEDS: FUROSEMIDE 40 MG/4 ML INJECTABLE VIAL IVPUSH SCH (10:19)
[2021-10-05] MEDS: FINASTERIDE 5 MG TABLET (FP) PO SCH (10:19)
[2021-10-05] MEDS: NICOTINE 21 MG/24 HOURS TOPICAL PATCH TD SCH (10:19)
[2021-10-05] MEDS: TAMSULOSIN HCL 0.4 MG CAP PO SCH (10:19)
[2021-10-05] MEDS: APIXABAN 5 MG TABLET PO SCH ×2 (10:19→22:06)
[2021-10-05] MEDS: HALOPERIDOL 1 MG TABLET PO SCH (10:51)
[2021-10-05] MEDS: VANCOMYCIN 1 GRAM (PRE-DOCKED) 1,000 MG/250 ML BAG IVPB SCH (15:22)
[2021-10-05] MEDS ORDERED: PIPERACILLIN/TAZOBACTAM 3.375 GM VIAL IVPB ONE (16:24)
[2021-10-05] MEDS ORDERED: DEXTROSE 5%-WATER - 50 ML IVPB ONE (16:24)
[2021-10-05] MEDS: PIPERACILLIN/TAZOB 3.375 GM 3.375 GM in DEXTROSE 5%-WATER - 50 ML IVPB SCH ×3 (17:15→19:19)
[2021-10-05] MEDS ORDERED: GENTAMICIN SO4 0.1% TOP CREAM 15 GM/TUBE TP SCH (22:00)
[2021-10-05] MEDS: metoPROLOL SUCCINATE 25 MG TAB.SR.24H (FP) PO SCH (22:06)
[2021-10-05] MEDS: GENTAMICIN SO4 0.1% TOP CREAM 15 GM/TUBE TP SCH (22:06)
[2021-10-05] MEDS: HALOPERIDOL 0.5 MG TABLET PO SCH (22:06)
[2021-10-06] MEDS ORDERED: PIPERACILLIN/TAZOBACTAM 3.375 GM VIAL IVPB ONE ×3 (01:23→17:22)
[2021-10-06] MEDS ORDERED: DEXTROSE 5%-WATER - 50 ML IVPB ONE ×3 (01:24→17:23)
[2021-10-06] MEDS: PIPERACILLIN/TAZOB 3.375 GM 3.375 GM in DEXTROSE 5%-WATER - 50 ML IVPB SCH ×3 (01:45→17:32)
[2021-10-06] MEDS: INSULIN SLIDING SCALE (NOVOLOG) 1 VIAL SQ SCH ×4 (06:58→21:56)
[2021-10-06 08:11] LABS: HEMATOCRIT 32.7 % (35.4-49); HEMOGLOBIN 10.7 GM/dL (11.7-16.9); MCH 29.3 pg (25.7-33.7); MCHC 32.8 g/dl (32.0-35.9); MEAN CELL VOLUME 89.3 fl (80-96); PLATELET COUNT 286 10^3/uL (134-434); RBC 3.66 M/mm3 (4.00-5.60); RDW 14.5 % (11.9-15.9); WHITE BLOOD COUNT 8.8 K/mm3 (4.0-10.0)
[2021-10-06] MEDS: TAMSULOSIN HCL 0.4 MG CAP PO SCH (08:30)
[2021-10-06 08:41] LABS: BLOOD UREA NITROGEN 12.1 mg/dL (7-18); MAGNESIUM 1.9 mg/dL (1.8-2.4)
[2021-10-06 08:42] LABS: ALBUMIN 2.4 g/dl (3.4-5.0)
[2021-10-06 08:45] LABS: CREATININE 0.7 mg/dL (0.55-1.3); PHOSPHOROUS 3.5 mg/dL (2.5-4.9)
[2021-10-06 08:46] LABS: BILIRUBIN,TOTAL 0.8 mg/dL (0.2-1); TOT PROT 6.5 g/dl (6.4-8.2)
[2021-10-06] MEDS: HALOPERIDOL 1 MG TABLET PO SCH (09:39)
[2021-10-06] MEDS: FUROSEMIDE 40 MG/4 ML INJECTABLE VIAL IVPUSH SCH (09:40)
[2021-10-06] MEDS: APIXABAN 5 MG TABLET PO SCH ×2 (09:40→21:35)
[2021-10-06] MEDS: GENTAMICIN SO4 0.1% TOP CREAM 15 GM/TUBE TP SCH ×2 (09:40→21:55)
[2021-10-06] MEDS: NICOTINE 21 MG/24 HOURS TOPICAL PATCH TD SCH (09:40)
[2021-10-06] MEDS: FINASTERIDE 5 MG TABLET (FP) PO SCH (09:40)
[2021-10-06] MEDS: VANCOMYCIN 1 GRAM (PRE-DOCKED) 1,000 MG/250 ML BAG IVPB SCH (15:34)
[2021-10-06] MEDS: HALOPERIDOL 0.5 MG TABLET PO SCH (21:35)
[2021-10-06] MEDS: metoPROLOL SUCCINATE 25 MG TAB.SR.24H (FP) PO SCH (21:35)
[2021-10-07] MEDS ORDERED: PIPERACILLIN/TAZOBACTAM 3.375 GM VIAL IVPB ONE ×3 (01:01→16:44)
[2021-10-07] MEDS ORDERED: DEXTROSE 5%-WATER - 50 ML IVPB ONE ×3 (01:02→16:45)
[2021-10-07] MEDS: PIPERACILLIN/TAZOB 3.375 GM 3.375 GM in DEXTROSE 5%-WATER - 50 ML IVPB SCH ×3 (01:08→17:52)
[2021-10-07] MEDS: INSULIN SLIDING SCALE (NOVOLOG) 1 VIAL SQ SCH ×4 (06:06→21:34)
[2021-10-07] MEDS: TAMSULOSIN HCL 0.4 MG CAP PO SCH (08:44)
[2021-10-07 08:51] LABS: BASO % 1.2 % (0-2.0); EOS % 5.7 % (0-4.5); HEMOGLOBIN 11.2 GM/dL (11.7-16.9); LYMPH % 12.3 % (8-40); MCH 30.3 pg (25.7-33.7); MCHC 34.1 g/dl (32.0-35.9); MEAN CELL VOLUME 88.9 fl (80-96); MEAN PLT VOLUME 8.8 fl (7.5-11.1); NEUT % 73.8 % (42.8-82.8); PLATELET COUNT 269 10^3/uL (134-434); RBC 3.71 M/mm3 (4.00-5.60); RDW 14.8 % (11.9-15.9); WHITE BLOOD COUNT 7.7 K/mm3 (4.0-10.0)
[2021-10-07 09:05] LABS: CALCIUM 8.1 mg/dL (8.5-10.1)
[2021-10-07 09:06] LABS: BLOOD UREA NITROGEN 13.3 mg/dL (7-18)
[2021-10-07 09:09] LABS: CREATININE 0.7 mg/dL (0.55-1.3); PHOSPHOROUS 3.6 mg/dL (2.5-4.9)
[2021-10-07] MEDS: NICOTINE 21 MG/24 HOURS TOPICAL PATCH TD SCH (09:57)
[2021-10-07] MEDS: HALOPERIDOL 1 MG TABLET PO SCH (09:58)
[2021-10-07] MEDS: FINASTERIDE 5 MG TABLET (FP) PO SCH (09:58)
[2021-10-07] MEDS: APIXABAN 5 MG TABLET PO SCH ×2 (09:58→21:34)
[2021-10-07] MEDS: GENTAMICIN SO4 0.1% TOP CREAM 15 GM/TUBE TP SCH ×2 (09:58→21:35)
[2021-10-07] MEDS: FUROSEMIDE 40 MG/4 ML INJECTABLE VIAL IVPUSH SCH (09:58)
[2021-10-07] MEDS: HALOPERIDOL 0.5 MG TABLET PO SCH (21:34)
[2021-10-07] MEDS: metoPROLOL SUCCINATE 25 MG TAB.SR.24H (FP) PO SCH (21:34)
[2021-10-08] MEDS ORDERED: DEXTROSE 5%-WATER - 50 ML IVPB ONE ×3 (01:03→17:35)
[2021-10-08] MEDS ORDERED: PIPERACILLIN/TAZOBACTAM 3.375 GM VIAL IVPB ONE ×3 (01:03→17:34)
[2021-10-08] MEDS: PIPERACILLIN/TAZOB 3.375 GM 3.375 GM in DEXTROSE 5%-WATER - 50 ML IVPB SCH ×3 (01:04→17:43)
[2021-10-08] MEDS ORDERED: TRIMETHOBENZAMIDE HCL 300 MG CAPSULE PO ONE (05:09)
[2021-10-08] MEDS: INSULIN SLIDING SCALE (NOVOLOG) 1 VIAL SQ SCH ×4 (06:03→22:10)
[2021-10-08 08:45] LABS: BASO % 1.2 % (0-2.0); EOS % 5.5 % (0-4.5); HEMATOCRIT 35.8 % (35.4-49); HEMOGLOBIN 12.2 GM/dL (11.7-16.9); LYMPH % 10.5 % (8-40); MCH 30.3 pg (25.7-33.7); MCHC 34.1 g/dl (32.0-35.9); MEAN CELL VOLUME 89.1 fl (80-96); MEAN PLT VOLUME 8.8 fl (7.5-11.1); MONO % 7.5 % (3.8-10.2); NEUT % 75.3 % (42.8-82.8); PLATELET COUNT 294 10^3/uL (134-434); RBC 4.02 M/mm3 (4.00-5.60); RDW 14.9 % (11.9-15.9); WHITE BLOOD COUNT 8.4 K/mm3 (4.0-10.0)
[2021-10-08 09:36] LABS: ALBUMIN 2.6 g/dl (3.4-5.0); BLOOD UREA NITROGEN 14.3 mg/dL (7-18)
[2021-10-08] MEDS: AMINO ACIDS/PROTEIN HYDROLYS 30 ML LIQUID.PKT PO SCH (09:41)
[2021-10-08] MEDS: TAMSULOSIN HCL 0.4 MG CAP PO SCH (09:42)
[2021-10-08] MEDS: FUROSEMIDE 40 MG/4 ML INJECTABLE VIAL IVPUSH SCH (09:42)
[2021-10-08] MEDS: HALOPERIDOL 1 MG TABLET PO SCH (09:42)
[2021-10-08] MEDS: NICOTINE 21 MG/24 HOURS TOPICAL PATCH TD SCH (09:42)
[2021-10-08] MEDS: ASCORBIC ACID 250 MG TABLET (FP) PO SCH (09:42)
[2021-10-08] MEDS: APIXABAN 5 MG TABLET PO SCH ×2 (09:43→22:10)
[2021-10-08] MEDS: MULTIVITAMINS (DAILY MVI) TABLET (FP) PO SCH (09:43)
[2021-10-08] MEDS: FINASTERIDE 5 MG TABLET (FP) PO SCH (09:43)
[2021-10-08] MEDS: GENTAMICIN SO4 0.1% TOP CREAM 15 GM/TUBE TP SCH ×2 (09:44→22:10)
[2021-10-08 09:50] LABS: CALCIUM 8.5 mg/dL (8.5-10.1)
[2021-10-08 09:56] LABS: CREATININE 0.8 mg/dL (0.55-1.3)
[2021-10-08 09:57] LABS: BILIRUBIN,TOTAL 0.7 mg/dL (0.2-1); PHOSPHOROUS 3.2 mg/dL (2.5-4.9)
[2021-10-08] MEDS: metoPROLOL SUCCINATE 25 MG TAB.SR.24H (FP) PO SCH (22:10)
[2021-10-08] MEDS: HALOPERIDOL 0.5 MG TABLET PO SCH (22:10)
[2021-10-09] MEDS ORDERED: DEXTROSE 5%-WATER - 50 ML IVPB ONE ×2 (01:01→09:55)
[2021-10-09] MEDS ORDERED: PIPERACILLIN/TAZOBACTAM 3.375 GM VIAL IVPB ONE ×2 (01:01→09:55)
[2021-10-09] MEDS: PIPERACILLIN/TAZOB 3.375 GM 3.375 GM in DEXTROSE 5%-WATER - 50 ML IVPB SCH ×3 (02:52→17:25)
[2021-10-09] MEDS: INSULIN SLIDING SCALE (NOVOLOG) 1 VIAL SQ SCH ×4 (06:02→21:37)
[2021-10-09 09:01] LABS: BASO % 1.2 % (0-2.0); EOS % 6.5 % (0-4.5); HEMATOCRIT 36.9 % (35.4-49); HEMOGLOBIN 11.9 GM/dL (11.7-16.9); LYMPH % 12.7 % (8-40); MCH 29.3 pg (25.7-33.7); MCHC 32.1 g/dl (32.0-35.9); MEAN CELL VOLUME 91.1 fl (80-96); MEAN PLT VOLUME 9.2 fl (7.5-11.1); MONO % 6.6 % (3.8-10.2); PLATELET COUNT 304 10^3/uL (134-434); RBC 4.05 M/mm3 (4.00-5.60); WHITE BLOOD COUNT 7.8 K/mm3 (4.0-10.0)
[2021-10-09 09:19] LABS: BLOOD UREA NITROGEN 17.1 mg/dL (7-18); CALCIUM 8.5 mg/dL (8.5-10.1)
[2021-10-09 09:22] LABS: CREATININE 0.7 mg/dL (0.55-1.3); PHOSPHOROUS 3.3 mg/dL (2.5-4.9)
[2021-10-09] MEDS: AMINO ACIDS/PROTEIN HYDROLYS 30 ML LIQUID.PKT PO SCH (10:34)
[2021-10-09] MEDS: FUROSEMIDE 40 MG/4 ML INJECTABLE VIAL IVPUSH SCH (10:34)
[2021-10-09] MEDS: MULTIVITAMINS (DAILY MVI) TABLET (FP) PO SCH (10:34)
[2021-10-09] MEDS: TAMSULOSIN HCL 0.4 MG CAP PO SCH (10:34)
[2021-10-09] MEDS: NICOTINE 21 MG/24 HOURS TOPICAL PATCH TD SCH (10:34)
[2021-10-09] MEDS: APIXABAN 5 MG TABLET PO SCH ×2 (10:34→21:37)
[2021-10-09] MEDS: FINASTERIDE 5 MG TABLET (FP) PO SCH (10:34)
[2021-10-09] MEDS: ASCORBIC ACID 250 MG TABLET (FP) PO SCH (10:35)
[2021-10-09] MEDS: HALOPERIDOL 1 MG TABLET PO SCH (10:35)
[2021-10-09] MEDS: GENTAMICIN SO4 0.1% TOP CREAM 15 GM/TUBE TP SCH ×2 (11:24→21:38)
[2021-10-09] MEDS: metoPROLOL SUCCINATE 25 MG TAB.SR.24H (FP) PO SCH (21:37)
[2021-10-09] MEDS: HALOPERIDOL 0.5 MG TABLET PO SCH (21:37)
[2021-10-10] MEDS ORDERED: DEXTROSE 5%-WATER - 50 ML IVPB ONE ×3 (00:55→16:07)
[2021-10-10] MEDS ORDERED: PIPERACILLIN/TAZOBACTAM 3.375 GM VIAL IVPB ONE ×3 (00:55→16:06)
[2021-10-10] MEDS: PIPERACILLIN/TAZOB 3.375 GM 3.375 GM in DEXTROSE 5%-WATER - 50 ML IVPB SCH ×3 (01:24→17:54)
[2021-10-10] MEDS: INSULIN SLIDING SCALE (NOVOLOG) 1 VIAL SQ SCH ×4 (06:28→22:57)
[2021-10-10 08:37] LABS: BASO % 1.8 % (0-2.0); EOS % 6.5 % (0-4.5); HEMATOCRIT 38.3 % (35.4-49); HEMOGLOBIN 12.6 GM/dL (11.7-16.9); LYMPH % 14.9 % (8-40); MCH 29.8 pg (25.7-33.7); MCHC 32.8 g/dl (32.0-35.9); MEAN CELL VOLUME 90.8 fl (80-96); MEAN PLT VOLUME 8.8 fl (7.5-11.1); MONO % 6.2 % (3.8-10.2); NEUT % 70.6 % (42.8-82.8); PLATELET COUNT 260 10^3/uL (134-434); RBC 4.22 M/mm3 (4.00-5.60); RDW 15.4 % (11.9-15.9); WHITE BLOOD COUNT 7.4 K/mm3 (4.0-10.0)
[2021-10-10 08:56] LABS: CALCIUM 9.1 mg/dL (8.5-10.1); MAGNESIUM 2.2 mg/dL (1.8-2.4)
[2021-10-10 08:57] LABS: BLOOD UREA NITROGEN 22.4 mg/dL (7-18)
[2021-10-10 09:00] LABS: CREATININE 0.7 mg/dL (0.55-1.3)
[2021-10-10 09:01] LABS: PHOSPHOROUS 3.4 mg/dL (2.5-4.9)
[2021-10-10] MEDS: AMINO ACIDS/PROTEIN HYDROLYS 30 ML LIQUID.PKT PO SCH (09:10)
[2021-10-10] MEDS: TAMSULOSIN HCL 0.4 MG CAP PO SCH (09:11)
[2021-10-10] MEDS: APIXABAN 5 MG TABLET PO SCH ×2 (09:12→22:50)
[2021-10-10] MEDS: MULTIVITAMINS (DAILY MVI) TABLET (FP) PO SCH (09:12)
[2021-10-10] MEDS: FINASTERIDE 5 MG TABLET (FP) PO SCH (09:12)
[2021-10-10] MEDS: HALOPERIDOL 1 MG TABLET PO SCH (09:13)
[2021-10-10] MEDS: FUROSEMIDE 40 MG/4 ML INJECTABLE VIAL IVPUSH SCH (09:13)
[2021-10-10] MEDS: NICOTINE 21 MG/24 HOURS TOPICAL PATCH TD SCH (09:15)
[2021-10-10] MEDS: ASCORBIC ACID 250 MG TABLET (FP) PO SCH (09:17)
[2021-10-10] MEDS: GENTAMICIN SO4 0.1% TOP CREAM 15 GM/TUBE TP SCH ×2 (09:18→22:52)
[2021-10-10] MEDS: HALOPERIDOL 0.5 MG TABLET PO SCH (22:50)
[2021-10-10] MEDS: metoPROLOL SUCCINATE 25 MG TAB.SR.24H (FP) PO SCH (22:50)
[2021-10-11] MEDS ORDERED: DEXTROSE 5%-WATER - 50 ML IVPB ONE ×3 (02:43→17:50)
[2021-10-11] MEDS ORDERED: PIPERACILLIN/TAZOBACTAM 3.375 GM VIAL IVPB ONE ×3 (02:43→17:50)
[2021-10-11] MEDS: PIPERACILLIN/TAZOB 3.375 GM 3.375 GM in DEXTROSE 5%-WATER - 50 ML IVPB SCH ×3 (03:30→18:19)
[2021-10-11] MEDS: INSULIN SLIDING SCALE (NOVOLOG) 1 VIAL SQ SCH ×4 (07:12→21:32)
[2021-10-11] MEDS: TAMSULOSIN HCL 0.4 MG CAP PO SCH (08:27)
[2021-10-11] MEDS: AMINO ACIDS/PROTEIN HYDROLYS 30 ML LIQUID.PKT PO SCH (08:27)
[2021-10-11] MEDS: FUROSEMIDE 40 MG/4 ML INJECTABLE VIAL IVPUSH SCH (10:20)
[2021-10-11] MEDS: MULTIVITAMINS (DAILY MVI) TABLET (FP) PO SCH (10:20)
[2021-10-11] MEDS: NICOTINE 21 MG/24 HOURS TOPICAL PATCH TD SCH (10:20)
[2021-10-11] MEDS: FINASTERIDE 5 MG TABLET (FP) PO SCH (10:20)
[2021-10-11] MEDS: APIXABAN 5 MG TABLET PO SCH ×2 (10:20→21:28)
[2021-10-11] MEDS: ASCORBIC ACID 250 MG TABLET (FP) PO SCH (10:21)
[2021-10-11] MEDS: GENTAMICIN SO4 0.1% TOP CREAM 15 GM/TUBE TP SCH ×2 (10:21→21:35)
[2021-10-11] MEDS: HALOPERIDOL 1 MG TABLET PO SCH (10:21)
[2021-10-11 10:23] LABS: HEMOGLOBIN 12.6 GM/dL (11.7-16.9); RBC 4.25 M/mm3 (4.00-5.60); WHITE BLOOD COUNT 6.8 K/mm3 (4.0-10.0)
[2021-10-11 10:24] LABS: BASO % 1.5 % (0-2.0); EOS % 5.9 % (0-4.5); HEMATOCRIT 38.6 % (35.4-49); MCH 29.7 pg (25.7-33.7); MCHC 32.7 g/dl (32.0-35.9); MEAN CELL VOLUME 90.8 fl (80-96); MEAN PLT VOLUME 9.8 fl (7.5-11.1); MONO % 5.7 % (3.8-10.2); NEUT % 70.9 % (42.8-82.8); PLATELET COUNT 317 10^3/uL (134-434); RDW 15.2 % (11.9-15.9)
[2021-10-11 10:41] LABS: CALCIUM 9.4 mg/dL (8.5-10.1)
[2021-10-11 10:42] LABS: BLOOD UREA NITROGEN 25.7 mg/dL (7-18); MAGNESIUM 2.3 mg/dL (1.8-2.4)
[2021-10-11 10:45] LABS: CREATININE 0.9 mg/dL (0.55-1.3)
[2021-10-11 10:46] LABS: PHOSPHOROUS 3.9 mg/dL (2.5-4.9)
[2021-10-11 14:36] VITALS: BMI 22.1
[2021-10-11] MEDS: HALOPERIDOL 0.5 MG TABLET PO SCH (21:28)
[2021-10-11] MEDS: metoPROLOL SUCCINATE 25 MG TAB.SR.24H (FP) PO SCH (21:29)
[2021-10-12] MEDS ORDERED: DEXTROSE 5%-WATER - 50 ML IVPB ONE ×2 (01:15→13:38)
[2021-10-12] MEDS ORDERED: PIPERACILLIN/TAZOBACTAM 3.375 GM VIAL IVPB ONE ×2 (01:15→13:37)
[2021-10-12] MEDS: PIPERACILLIN/TAZOB 3.375 GM 3.375 GM in DEXTROSE 5%-WATER - 50 ML IVPB SCH ×3 (01:51→17:00)
[2021-10-12] MEDS: INSULIN SLIDING SCALE (NOVOLOG) 1 VIAL SQ SCH ×4 (06:01→21:08)
[2021-10-12] MEDS: NICOTINE 21 MG/24 HOURS TOPICAL PATCH TD SCH (09:04)
[2021-10-12] MEDS: AMINO ACIDS/PROTEIN HYDROLYS 30 ML LIQUID.PKT PO SCH (09:04)
[2021-10-12] MEDS: MULTIVITAMINS (DAILY MVI) TABLET (FP) PO SCH (09:05)
[2021-10-12] MEDS: FUROSEMIDE 40 MG/4 ML INJECTABLE VIAL IVPUSH SCH (09:05)
[2021-10-12] MEDS: TAMSULOSIN HCL 0.4 MG CAP PO SCH (09:05)
[2021-10-12 09:06] LABS: BASO % 1.8 % (0-2.0); EOS % 5.4 % (0-4.5); HEMATOCRIT 39.2 % (35.4-49); HEMOGLOBIN 12.5 GM/dL (11.7-16.9); LYMPH % 15.8 % (8-40); MCHC 31.9 g/dl (32.0-35.9); MEAN CELL VOLUME 90.9 fl (80-96); MEAN PLT VOLUME 9.7 fl (7.5-11.1); MONO % 6.9 % (3.8-10.2); NEUT % 70.1 % (42.8-82.8); PLATELET COUNT 373 10^3/uL (134-434); RBC 4.31 M/mm3 (4.00-5.60); RDW 15.4 % (11.9-15.9)
[2021-10-12] MEDS: HALOPERIDOL 1 MG TABLET PO SCH (09:06)
[2021-10-12] MEDS: ASCORBIC ACID 250 MG TABLET (FP) PO SCH (09:06)
[2021-10-12] MEDS: FINASTERIDE 5 MG TABLET (FP) PO SCH (09:06)
[2021-10-12] MEDS: APIXABAN 5 MG TABLET PO SCH ×2 (09:06→21:08)
[2021-10-12] MEDS: GENTAMICIN SO4 0.1% TOP CREAM 15 GM/TUBE TP SCH ×2 (09:07→21:08)
[2021-10-12 09:27] LABS: CALCIUM 9.4 mg/dL (8.5-10.1)
[2021-10-12 09:28] LABS: BLOOD UREA NITROGEN 27.6 mg/dL (7-18); MAGNESIUM 2.3 mg/dL (1.8-2.4)
[2021-10-12 09:31] LABS: CREATININE 0.8 mg/dL (0.55-1.3); PHOSPHOROUS 3.3 mg/dL (2.5-4.9)
[2021-10-12] MEDS: HALOPERIDOL 0.5 MG TABLET PO SCH (21:08)
[2021-10-12] MEDS: metoPROLOL SUCCINATE 25 MG TAB.SR.24H (FP) PO SCH (21:08)
[2021-10-13] MEDS ORDERED: PIPERACILLIN/TAZOBACTAM 3.375 GM VIAL IVPB ONE ×3 (00:29→17:26)
[2021-10-13] MEDS ORDERED: DEXTROSE 5%-WATER - 50 ML IVPB ONE ×3 (00:30→17:26)
[2021-10-13] MEDS: PIPERACILLIN/TAZOB 3.375 GM 3.375 GM in DEXTROSE 5%-WATER - 50 ML IVPB SCH ×3 (01:05→17:57)
[2021-10-13] MEDS: INSULIN SLIDING SCALE (NOVOLOG) 1 VIAL SQ SCH ×4 (06:12→21:44)
[2021-10-13 09:31] LABS: BASO % 1.4 % (0-2.0); EOS % 4.9 % (0-4.5); HEMATOCRIT 36.8 % (35.4-49); HEMOGLOBIN 11.9 GM/dL (11.7-16.9); LYMPH % 16.6 % (8-40); MCH 29.5 pg (25.7-33.7); MCHC 32.5 g/dl (32.0-35.9); MEAN CELL VOLUME 90.8 fl (80-96); MEAN PLT VOLUME 9.6 fl (7.5-11.1); MONO % 7.4 % (3.8-10.2); NEUT % 69.7 % (42.8-82.8); PLATELET COUNT 314 10^3/uL (134-434); RBC 4.05 M/mm3 (4.00-5.60); RDW 15.1 % (11.9-15.9); WHITE BLOOD COUNT 7.3 K/mm3 (4.0-10.0)
[2021-10-13 09:49] LABS: CALCIUM 9.7 mg/dL (8.5-10.1)
[2021-10-13 09:50] LABS: BLOOD UREA NITROGEN 30.5 mg/dL (7-18); MAGNESIUM 2.3 mg/dL (1.8-2.4)
[2021-10-13 09:54] LABS: CREATININE 0.9 mg/dL (0.55-1.3)
[2021-10-13] MEDS: NICOTINE 21 MG/24 HOURS TOPICAL PATCH TD SCH ×2 (10:22→10:57)
[2021-10-13] MEDS: AMINO ACIDS/PROTEIN HYDROLYS 30 ML LIQUID.PKT PO SCH (10:22)
[2021-10-13] MEDS: MULTIVITAMINS (DAILY MVI) TABLET (FP) PO SCH (10:25)
[2021-10-13] MEDS: APIXABAN 5 MG TABLET PO SCH ×2 (10:25→21:44)
[2021-10-13] MEDS: ASCORBIC ACID 250 MG TABLET (FP) PO SCH (10:25)
[2021-10-13] MEDS: FINASTERIDE 5 MG TABLET (FP) PO SCH (10:25)
[2021-10-13] MEDS: HALOPERIDOL 1 MG TABLET PO SCH (10:25)
[2021-10-13] MEDS: FUROSEMIDE 40 MG/4 ML INJECTABLE VIAL IVPUSH SCH (10:26)
[2021-10-13] MEDS: TAMSULOSIN HCL 0.4 MG CAP PO SCH (10:26)
[2021-10-13] MEDS: GENTAMICIN SO4 0.1% TOP CREAM 15 GM/TUBE TP SCH ×2 (10:27→21:45)
[2021-10-13] MEDS: HALOPERIDOL 0.5 MG TABLET PO SCH (21:44)
[2021-10-13] MEDS: metoPROLOL SUCCINATE 25 MG TAB.SR.24H (FP) PO SCH (21:45)
[2021-10-13] MEDS: NYSTATIN POWDER 100,000 UNITS/GM - 15 GM TOPICAL POWDER TP SCH (21:45)
[2021-10-14] MEDS ORDERED: PIPERACILLIN/TAZOBACTAM 3.375 GM VIAL IVPB ONE ×2 (00:53→10:53)
[2021-10-14] MEDS ORDERED: DEXTROSE 5%-WATER - 50 ML IVPB ONE ×2 (00:53→10:53)
[2021-10-14] MEDS: PIPERACILLIN/TAZOB 3.375 GM 3.375 GM in DEXTROSE 5%-WATER - 50 ML IVPB SCH ×2 (02:03→10:58)
[2021-10-14] MEDS: INSULIN SLIDING SCALE (NOVOLOG) 1 VIAL SQ SCH ×4 (06:24→22:09)
[2021-10-14 08:20] LABS: BASO % 2.2 % (0-2.0); EOS % 5.3 % (0-4.5); HEMATOCRIT 32.4 % (35.4-49); HEMOGLOBIN 10.8 GM/dL (11.7-16.9); LYMPH % 18.2 % (8-40); MCH 29.8 pg (25.7-33.7); MCHC 33.3 g/dl (32.0-35.9); MEAN CELL VOLUME 89.6 fl (80-96); MEAN PLT VOLUME 9.4 fl (7.5-11.1); MONO % 11.1 % (3.8-10.2); NEUT % 63.2 % (42.8-82.8); PLATELET COUNT 271 10^3/uL (134-434); RBC 3.62 M/mm3 (4.00-5.60); RDW 15.2 % (11.9-15.9); WHITE BLOOD COUNT 6.2 K/mm3 (4.0-10.0)
[2021-10-14 08:33] LABS: BLOOD UREA NITROGEN 29.8 mg/dL (7-18); CALCIUM 8.8 mg/dL (8.5-10.1); MAGNESIUM 2.3 mg/dL (1.8-2.4)
[2021-10-14 08:37] LABS: CREATININE 0.7 mg/dL (0.55-1.3); PHOSPHOROUS 3.5 mg/dL (2.5-4.9)
[2021-10-14] MEDS: MULTIVITAMINS (DAILY MVI) TABLET (FP) PO SCH (10:56)
[2021-10-14] MEDS: TAMSULOSIN HCL 0.4 MG CAP PO SCH (10:56)
[2021-10-14] MEDS: NICOTINE 21 MG/24 HOURS TOPICAL PATCH TD SCH (10:57)
[2021-10-14] MEDS: APIXABAN 5 MG TABLET PO SCH ×2 (10:57→21:57)
[2021-10-14] MEDS: FINASTERIDE 5 MG TABLET (FP) PO SCH (10:57)
[2021-10-14] MEDS: AMINO ACIDS/PROTEIN HYDROLYS 30 ML LIQUID.PKT PO SCH (10:58)
[2021-10-14] MEDS: GENTAMICIN SO4 0.1% TOP CREAM 15 GM/TUBE TP SCH ×2 (11:06→21:58)
[2021-10-14] MEDS: ASCORBIC ACID 250 MG TABLET (FP) PO SCH (11:07)
[2021-10-14] MEDS: HALOPERIDOL 1 MG TABLET PO SCH (11:08)
[2021-10-14] MEDS: FUROSEMIDE 40 MG/4 ML INJECTABLE VIAL IVPUSH SCH (11:09)
[2021-10-14] MEDS: NYSTATIN POWDER 100,000 UNITS/GM - 15 GM TOPICAL POWDER TP SCH ×2 (11:09→21:58)
[2021-10-14] MEDS ORDERED: CEFTRIAXONE 2 GM in DEXTROSE 5%-WATER 2 GM/100 ML BAG IVPB SCH (16:00)
[2021-10-14] MEDS ORDERED: DEXTROSE 5%-WATER 100 ML IVPB ONE (17:33)
[2021-10-14] MEDS: metoPROLOL SUCCINATE 25 MG TAB.SR.24H (FP) PO SCH (21:57)
[2021-10-14] MEDS: HALOPERIDOL 0.5 MG TABLET PO SCH (21:57)
[2021-10-14 23:13] VITALS: BP 143/68; PULSE 86; TEMP 98.8
== END 2021-10-14 22:20 | DRG 637 ==
LOC: JER 15:15 → JERBED 20:31 → J4S 10-04 02:29 → J7W 10-08 20:57
PROVIDERS: ADMIT Hospitalist; ATTEND Internal Medicine
PROC: 0T7D7ZZ Dilation of Urethra, Via Natural or Artificial Opening (ICD-10-PCS; principal; 2021-10-05)
PROC: 0T9B70Z Drainage of Bladder with Drainage Device, Via Natural or Artificial Opening (ICD-10-PCS; 2021-10-05)
PROC: 02HV33Z Insertion of Infusion Device into Superior Vena Cava, Percutaneous Approach (ICD-10-PCS; 2021-10-05)
PROC: B518ZZA Fluoroscopy of Superior Vena Cava, Guidance (ICD-10-PCS; 2021-10-05)
DX: E11.69 Type 2 diabetes mellitus with other specified complication (principal); I50.33 Acute on chronic diastolic (congestive) heart failure; L97.828 Non-pressure chronic ulcer of other part of left lower leg with other specified severity; I45.2 Bifascicular block; L03.116 Cellulitis of left lower limb; L03.115 Cellulitis of right lower limb; M86.8X7 Other osteomyelitis, ankle and foot; E11.622 Type 2 diabetes mellitus with other skin ulcer; F03.90 Unspecified dementia, unspecified severity, without behavioral disturbance, psychotic disturbance, mood disturbance, and anxiety; E78.5 Hyperlipidemia, unspecified; I10 Essential (primary) hypertension; I48.91 Unspecified atrial fibrillation; N49.2 Inflammatory disorders of scrotum; I11.0 Hypertensive heart disease with heart failure; I71.4 Abdominal aortic aneurysm, without rupture; N40.1 Benign prostatic hyperplasia with lower urinary tract symptoms; R33.8 Other retention of urine; Z85.46 Personal history of malignant neoplasm of prostate
CPT/HCPCS: 36415; 36569; 71045-TC-FY; 72192-TC; 73590-TC-LT-FY; 73590-TC-RT-FY; 73610-TC-LT-FY; 73610-TC-RT-FY; 73630-TC-LT; 73630-TC-RT-FY; 73718-TC-LT; 73718-TC-RT; 76870-TC; 80048; 80053; 80061; 81003; 82550; 82803; 82962; 83036; 83605; 83735; 84100; 84443; 84484; 85025; 85027; 85610; 85651; 85730; 86140; 87040; 87086; 93005; 93010; 93306-TC; 93970-TC; 97116-GP; 97162-GP; 99285-25; C9803; U0003; U0005

== ENCOUNTER 2022-02-10 11:47 | Inpatient (IN) | payer OTHER, BC ==
[2022-02-10] MEDS ORDERED: PIPERACILLIN/TAZOB 3.375 GM 3.375 GM in DEXTROSE 5%-WATER - 50 ML IVPB ONE (14:16)
[2022-02-10] MEDS ORDERED: VANCOMYCIN 1 GM in D5W (PRE-DOCKED) 1,000 MG/250 ML IVPB ONE (14:18)
[2022-02-10 14:53] LABS: EOS % 4.3 % (0-4.5); HEMOGLOBIN 11.5 GM/dL (11.7-16.9); LYMPH % 17.8 % (8-40); MCH 29.2 pg (25.7-33.7); MEAN CELL VOLUME 88.5 fl (80-96); MEAN PLT VOLUME 9.2 fl (7.5-11.1); MONO % 9.2 % (3.8-10.2); NEUT % 67.7 % (42.8-82.8); PLATELET COUNT 211 10^3/uL (134-434); RBC 3.95 M/mm3 (4.00-5.60); RDW 14.5 % (11.9-15.9); WHITE BLOOD COUNT 8.6 K/mm3 (4.0-10.0)
[2022-02-10] MEDS ORDERED: PIPERACILLIN/TAZOB 3.375 GM 3.375 GM/50 ML BAG IVPB ONE (15:18)
[2022-02-10 15:22] LABS: CALCIUM 9.3 mg/dL (8.5-10.1)
[2022-02-10 15:23] LABS: ALBUMIN 3.4 g/dl (3.4-5.0); BLOOD UREA NITROGEN 14.3 mg/dL (7-18)
[2022-02-10 15:26] LABS: CREATININE 0.8 mg/dL (0.55-1.3)
[2022-02-10 15:28] LABS: BILIRUBIN,TOTAL 0.6 mg/dL (0.2-1)
[2022-02-10 15:43] LABS: ERYTHROCYTE SEDIMENTATION RATE 85 mm/hr (0-20)
[2022-02-10] MEDS ORDERED: VANCOMYCIN 1 GRAM (PRE-DOCKED) 1,000 MG/250 ML BAG IVPB ONE (15:49)
[2022-02-10] MEDS ORDERED: SODIUM CHLORIDE 1,000 ML IV SCH ×2 (17:30→18:18)
[2022-02-10] MEDS ORDERED: APIXABAN 5 MG TABLET ONE (23:56)
[2022-02-10] MEDS ORDERED: PIPERACILLIN/TAZOB 2.25 GM 2.25 GM/50 ML BAG IVPB ONE (23:56)
[2022-02-11] MEDS: APIXABAN 5 MG TABLET PO SCH ×3 (00:09→21:45)
[2022-02-11] MEDS: PIPERACILLIN/TAZOB 2.25 GM 2.25 GM in DEXTROSE 5%-WATER - 50 ML IVPB SCH ×3 (00:09→17:16)
[2022-02-11] MEDS: INSULIN SLIDING SCALE (NOVOLOG) 1 VIAL SQ SCH ×5 (00:19→21:45)
[2022-02-11] MEDS ORDERED: PIPERACILLIN/TAZOB 2.25 GM 2.25 GM/50 ML BAG IVPB ONE (07:37)
[2022-02-11 07:53] LABS: BASO % 1.2 % (0-2.0); EOS % 5.1 % (0-4.5); HEMATOCRIT 33.2 % (35.4-49); HEMOGLOBIN 11.1 GM/dL (11.7-16.9); LYMPH % 17.9 % (8-40); MCH 29.4 pg (25.7-33.7); MCHC 33.4 g/dl (32.0-35.9); MEAN CELL VOLUME 88.1 fl (80-96); MEAN PLT VOLUME 9.4 fl (7.5-11.1); MONO % 8.3 % (3.8-10.2); NEUT % 67.5 % (42.8-82.8); PLATELET COUNT 212 10^3/uL (134-434); RBC 3.77 M/mm3 (4.00-5.60); RDW 14.7 % (11.9-15.9); WHITE BLOOD COUNT 6.7 K/mm3 (4.0-10.0)
[2022-02-11 08:14] LABS: ALBUMIN 2.8 g/dl (3.4-5.0); CALCIUM 8.7 mg/dL (8.5-10.1)
[2022-02-11 08:15] LABS: BLOOD UREA NITROGEN 16.1 mg/dL (7-18); MAGNESIUM 1.9 mg/dL (1.8-2.4)
[2022-02-11 08:16] LABS: ACTIVATED PTT 34.6 SECONDS (25.2-36.5)
[2022-02-11 08:17] LABS: CREATININE 0.7 mg/dL (0.55-1.3); PHOSPHOROUS 3.8 mg/dL (2.5-4.9)
[2022-02-11 08:18] LABS: INR 1.41 (0.83-1.09); PROTHROMBIN TIME (PATIENT) 16.3 SEC (9.7-13.0)
[2022-02-11 08:19] LABS: BILIRUBIN,TOTAL 0.4 mg/dL (0.2-1); TOT PROT 7.2 g/dl (6.4-8.2)
[2022-02-11] MEDS ORDERED: APIXABAN 5 MG TABLET ONE (09:21)
[2022-02-11] MEDS ORDERED: TAMSULOSIN HCL 0.4 MG CAP ONE (09:22)
[2022-02-11] MEDS: TAMSULOSIN HCL 0.4 MG CAP PO SCH (09:25)
[2022-02-11] MEDS: FINASTERIDE 5 MG TABLET (FP) PO SCH (09:37)
[2022-02-11] MEDS ORDERED: VANCOMYCIN 1 GM in D5W (PRE-DOCKED) 1,000 MG/250 ML IVPB SCH (17:00)
[2022-02-11 17:22] LABS: URINE APPEARANCE CLEAR; URINE BILIRUBIN NEGATIVE (NEGATIVE); URINE COLOR YELLOW; URINE GLUCOSE (UA) NEGATIVE (NEGATIVE); URINE KETONE NEGATIVE (NEGATIVE); URINE LEUK ESTERASE NEGATIVE (NEGATIVE); URINE NITRITE NEGATIVE (NEGATIVE); URINE PROTEIN NEGATIVE (NEGATIVE)
[2022-02-11] MEDS ORDERED: PIPERACILLIN/TAZOBACTAM 3.375 GM VIAL IVPB ONE (18:11)
[2022-02-11] MEDS ORDERED: DEXTROSE 5%-WATER - 50 ML IVPB ONE (18:11)
[2022-02-11] MEDS: PIPERACILLIN/TAZOB 3.375 GM 3.375 GM in DEXTROSE 5%-WATER - 50 ML IVPB SCH (18:25)
[2022-02-11 18:49] VITALS: BMI 22.9
[2022-02-11] MEDS ORDERED: PIPERACILLIN/TAZOB 2.25 GM 2.25 GM in DEXTROSE 5%-WATER - 50 ML IVPB SCH (23:00)
[2022-02-12] MEDS ORDERED: PIPERACILLIN/TAZOBACTAM 3.375 GM VIAL IVPB ONE ×3 (01:27→16:53)
[2022-02-12] MEDS ORDERED: DEXTROSE 5%-WATER - 50 ML IVPB ONE ×3 (01:28→16:53)
[2022-02-12] MEDS: PIPERACILLIN/TAZOB 3.375 GM 3.375 GM in DEXTROSE 5%-WATER - 50 ML IVPB SCH ×3 (02:33→18:36)
[2022-02-12] MEDS: INSULIN SLIDING SCALE (NOVOLOG) 1 VIAL SQ SCH ×4 (05:59→21:35)
[2022-02-12 08:39] LABS: BASO % 1.1 % (0-2.0); EOS % 6.2 % (0-4.5); HEMATOCRIT 33.4 % (35.4-49); HEMOGLOBIN 11.2 GM/dL (11.7-16.9); LYMPH % 23.6 % (8-40); MCH 29.7 pg (25.7-33.7); MCHC 33.5 g/dl (32.0-35.9); MEAN CELL VOLUME 88.7 fl (80-96); MEAN PLT VOLUME 9.5 fl (7.5-11.1); MONO % 8.3 % (3.8-10.2); NEUT % 60.8 % (42.8-82.8); PLATELET COUNT 204 10^3/uL (134-434); RBC 3.76 M/mm3 (4.00-5.60); RDW 14.5 % (11.9-15.9)
[2022-02-12 09:03] LABS: ALBUMIN 2.8 g/dl (3.4-5.0); CALCIUM 8.7 mg/dL (8.5-10.1)
[2022-02-12 09:04] LABS: BLOOD UREA NITROGEN 12.4 mg/dL (7-18); CREATININE 0.6 mg/dL (0.55-1.3); PHOSPHOROUS 3.3 mg/dL (2.5-4.9)
[2022-02-12 09:05] LABS: BILIRUBIN,TOTAL 0.5 mg/dL (0.2-1); MAGNESIUM 1.9 mg/dL (1.8-2.4); TOT PROT 7.1 g/dl (6.4-8.2)
[2022-02-12] MEDS: APIXABAN 5 MG TABLET PO SCH ×2 (09:53→21:32)
[2022-02-12] MEDS: TAMSULOSIN HCL 0.4 MG CAP PO SCH (09:53)
[2022-02-12] MEDS: FINASTERIDE 5 MG TABLET (FP) PO SCH (09:53)
[2022-02-12] MEDS ORDERED: FUROSEMIDE 40 MG TABLET (FP) PO SCH (10:00)
[2022-02-12] MEDS ORDERED: VANCOMYCIN/WATER 1,250 MG/250 ML BAG IVPB SCH (15:30)
[2022-02-12] MEDS ORDERED: VANCOMYCIN 1 GM in D5W (PRE-DOCKED) 1,000 MG/250 ML IVPB SCH (17:00)
[2022-02-12] MEDS: metoPROLOL SUCCINATE 25 MG TAB.SR.24H (FP) PO SCH (21:32)
[2022-02-12] MEDS: MIRTAZAPINE 15 MG TABLET (FP) PO SCH (21:32)
[2022-02-13] MEDS ORDERED: PIPERACILLIN/TAZOBACTAM 3.375 GM VIAL IVPB ONE ×3 (01:07→17:02)
[2022-02-13] MEDS ORDERED: DEXTROSE 5%-WATER - 50 ML IVPB ONE ×3 (01:07→17:02)
[2022-02-13] MEDS: PIPERACILLIN/TAZOB 3.375 GM 3.375 GM in DEXTROSE 5%-WATER - 50 ML IVPB SCH ×3 (01:27→18:53)
[2022-02-13] MEDS: INSULIN SLIDING SCALE (NOVOLOG) 1 VIAL SQ SCH ×4 (06:38→23:08)
[2022-02-13 08:17] LABS: HEMATOCRIT 32.3 % (35.4-49); HEMOGLOBIN 10.9 GM/dL (11.7-16.9); MCH 29.6 pg (25.7-33.7); MCHC 33.8 g/dl (32.0-35.9); MEAN CELL VOLUME 87.6 fl (80-96); MEAN PLT VOLUME 9.2 fl (7.5-11.1); PLATELET COUNT 209 10^3/uL (134-434); RBC 3.69 M/mm3 (4.00-5.60); RDW 14.4 % (11.9-15.9); WHITE BLOOD COUNT 5.4 K/mm3 (4.0-10.0)
[2022-02-13 08:39] LABS: BLOOD UREA NITROGEN 14.7 mg/dL (7-18); CALCIUM 9.1 mg/dL (8.5-10.1)
[2022-02-13 08:43] LABS: CREATININE 0.8 mg/dL (0.55-1.3)
[2022-02-13] MEDS: TAMSULOSIN HCL 0.4 MG CAP PO SCH (08:52)
[2022-02-13] MEDS ORDERED: VANCOMYCIN/WATER 1,250 MG/250 ML BAG IVPB SCH ×2 (10:15)
[2022-02-13] MEDS ORDERED: VANCOMYCIN PREMIX 1.5 GM 1,500 MG/300 ML BAG IVPB SCH (10:30)
[2022-02-13] MEDS: APIXABAN 5 MG TABLET PO SCH ×2 (10:31→23:08)
[2022-02-13] MEDS: FINASTERIDE 5 MG TABLET (FP) PO SCH (10:31)
[2022-02-13] MEDS: VANCOMYCIN PREMIX 1.5 GM 1,500 MG/300 ML BAG IVPB SCH (15:07)
[2022-02-13] MEDS: MIRTAZAPINE 15 MG TABLET (FP) PO SCH (23:08)
[2022-02-13] MEDS: metoPROLOL SUCCINATE 25 MG TAB.SR.24H (FP) PO SCH (23:08)
[2022-02-14] MEDS ORDERED: PIPERACILLIN/TAZOBACTAM 3.375 GM VIAL IVPB ONE ×3 (01:39→17:17)
[2022-02-14] MEDS: PIPERACILLIN/TAZOB 3.375 GM 3.375 GM in DEXTROSE 5%-WATER - 50 ML IVPB SCH ×3 (01:49→17:22)
[2022-02-14] MEDS: VANCOMYCIN PREMIX 1.5 GM 1,500 MG/300 ML BAG IVPB SCH ×2 (01:49→14:34)
[2022-02-14] MEDS: INSULIN SLIDING SCALE (NOVOLOG) 1 VIAL SQ SCH ×4 (06:59→21:11)
[2022-02-14] MEDS ORDERED: DEXTROSE 5%-WATER - 50 ML IVPB ONE ×2 (09:27→17:17)
[2022-02-14] MEDS: TAMSULOSIN HCL 0.4 MG CAP PO SCH (09:29)
[2022-02-14] MEDS: APIXABAN 5 MG TABLET PO SCH ×2 (09:41→21:11)
[2022-02-14] MEDS: FINASTERIDE 5 MG TABLET (FP) PO SCH (09:41)
[2022-02-14 10:15] LABS: ALBUMIN 3.1 g/dl (3.4-5.0); BLOOD UREA NITROGEN 12.7 mg/dL (7-18); MAGNESIUM 2.1 mg/dL (1.8-2.4)
[2022-02-14 10:18] LABS: CREATININE 0.8 mg/dL (0.55-1.3); PHOSPHOROUS 3.2 mg/dL (2.5-4.9)
[2022-02-14 10:19] LABS: BILIRUBIN,TOTAL 0.8 mg/dL (0.2-1); TOT PROT 7.6 g/dl (6.4-8.2)
[2022-02-14] MEDS: MIRTAZAPINE 15 MG TABLET (FP) PO SCH (21:11)
[2022-02-14] MEDS: metoPROLOL SUCCINATE 25 MG TAB.SR.24H (FP) PO SCH (21:13)
[2022-02-15] MEDS ORDERED: PIPERACILLIN/TAZOBACTAM 3.375 GM VIAL IVPB ONE ×3 (00:53→17:21)
[2022-02-15] MEDS: PIPERACILLIN/TAZOB 3.375 GM 3.375 GM in DEXTROSE 5%-WATER - 50 ML IVPB SCH ×3 (01:22→17:22)
[2022-02-15] MEDS: INSULIN SLIDING SCALE (NOVOLOG) 1 VIAL SQ SCH ×4 (06:43→21:29)
[2022-02-15] MEDS ORDERED: INSULIN (NOVOLOG) ASPART 100 UNITS/ML 10ML VIAL ONE ×2 (06:48→17:21)
[2022-02-15] MEDS ORDERED: DEXTROSE 5%-WATER - 50 ML IVPB ONE ×2 (09:22→17:21)
[2022-02-15] MEDS: APIXABAN 5 MG TABLET PO SCH ×2 (09:26→21:29)
[2022-02-15] MEDS: FINASTERIDE 5 MG TABLET (FP) PO SCH (09:26)
[2022-02-15] MEDS: TAMSULOSIN HCL 0.4 MG CAP PO SCH (09:26)
[2022-02-15 12:59] LABS: BASO % 1.5 % (0-2.0); EOS % 5.7 % (0-4.5); HEMATOCRIT 36.4 % (35.4-49); HEMOGLOBIN 12.2 GM/dL (11.7-16.9); LYMPH % 20.1 % (8-40); MCH 30.1 pg (25.7-33.7); MCHC 33.5 g/dl (32.0-35.9); MEAN CELL VOLUME 89.9 fl (80-96); MEAN PLT VOLUME 9.2 fl (7.5-11.1); MONO % 6.4 % (3.8-10.2); NEUT % 66.3 % (42.8-82.8); PLATELET COUNT 222 10^3/uL (134-434); RBC 4.05 M/mm3 (4.00-5.60); RDW 14.7 % (11.9-15.9)
[2022-02-15 13:27] LABS: BLOOD UREA NITROGEN 14.8 mg/dL (7-18); CALCIUM 9.2 mg/dL (8.5-10.1)
[2022-02-15 13:28] LABS: ALBUMIN 3.1 g/dl (3.4-5.0); MAGNESIUM 2.1 mg/dL (1.8-2.4)
[2022-02-15 13:30] LABS: PHOSPHOROUS 3.4 mg/dL (2.5-4.9)
[2022-02-15 13:31] LABS: CREATININE 0.8 mg/dL (0.55-1.3); TOT PROT 7.8 g/dl (6.4-8.2)
[2022-02-15 13:33] LABS: BILIRUBIN,TOTAL 0.5 mg/dL (0.2-1)
[2022-02-15] MEDS ORDERED: VANCOMYCIN/WATER FOR INJ (PEG) 1,000 MG/200 ML BAG IVPB ONE (19:00)
[2022-02-15] MEDS: metoPROLOL SUCCINATE 25 MG TAB.SR.24H (FP) PO SCH (21:29)
[2022-02-15] MEDS: MIRTAZAPINE 15 MG TABLET (FP) PO SCH (21:29)
[2022-02-16] MEDS ORDERED: PIPERACILLIN/TAZOBACTAM 3.375 GM VIAL IVPB ONE ×3 (00:33→16:32)
[2022-02-16] MEDS ORDERED: DEXTROSE 5%-WATER - 50 ML IVPB ONE ×3 (00:33→16:32)
[2022-02-16] MEDS: PIPERACILLIN/TAZOB 3.375 GM 3.375 GM in DEXTROSE 5%-WATER - 50 ML IVPB SCH ×3 (01:30→17:06)
[2022-02-16] MEDS: VANCOMYCIN/WATER FOR INJ (PEG) 750 MG/150 ML BAG IVPB SCH ×2 (06:02→18:06)
[2022-02-16] MEDS: INSULIN SLIDING SCALE (NOVOLOG) 1 VIAL SQ SCH ×4 (06:42→21:03)
[2022-02-16] MEDS: TAMSULOSIN HCL 0.4 MG CAP PO SCH (08:39)
[2022-02-16] MEDS: FINASTERIDE 5 MG TABLET (FP) PO SCH (09:10)
[2022-02-16] MEDS: APIXABAN 5 MG TABLET PO SCH ×2 (09:10→21:02)
[2022-02-16 10:26] LABS: HEMATOCRIT 32.9 % (35.4-49); HEMOGLOBIN 11.2 GM/dL (11.7-16.9); MEAN PLT VOLUME 9.2 fl (7.5-11.1); PLATELET COUNT 203 10^3/uL (134-434); RBC 3.74 M/mm3 (4.00-5.60); RDW 14.7 % (11.9-15.9); WHITE BLOOD COUNT 6.6 K/mm3 (4.0-10.0)
[2022-02-16 11:04] LABS: BLOOD UREA NITROGEN 16.3 mg/dL (7-18); CALCIUM 8.7 mg/dL (8.5-10.1)
[2022-02-16 11:07] LABS: CREATININE 0.8 mg/dL (0.55-1.3)
[2022-02-16] MEDS: metoPROLOL SUCCINATE 25 MG TAB.SR.24H (FP) PO SCH (21:02)
[2022-02-16] MEDS: MIRTAZAPINE 15 MG TABLET (FP) PO SCH (21:02)
[2022-02-17] MEDS ORDERED: PIPERACILLIN/TAZOBACTAM 3.375 GM VIAL IVPB ONE ×3 (01:09→17:38)
[2022-02-17] MEDS ORDERED: DEXTROSE 5%-WATER - 50 ML IVPB ONE ×3 (01:09→17:38)
[2022-02-17] MEDS: PIPERACILLIN/TAZOB 3.375 GM 3.375 GM in DEXTROSE 5%-WATER - 50 ML IVPB SCH ×3 (02:23→17:39)
[2022-02-17] MEDS: VANCOMYCIN/WATER FOR INJ (PEG) 750 MG/150 ML BAG IVPB SCH ×2 (06:07→20:30)
[2022-02-17] MEDS: INSULIN SLIDING SCALE (NOVOLOG) 1 VIAL SQ SCH ×4 (06:09→22:35)
[2022-02-17 08:45] LABS: HEMATOCRIT 34.6 % (35.4-49); HEMOGLOBIN 11.7 GM/dL (11.7-16.9); MCH 30.3 pg (25.7-33.7); MEAN CELL VOLUME 89.1 fl (80-96); MEAN PLT VOLUME 9.1 fl (7.5-11.1); PLATELET COUNT 202 10^3/uL (134-434); RBC 3.88 M/mm3 (4.00-5.60); RDW 14.7 % (11.9-15.9); WHITE BLOOD COUNT 6.9 K/mm3 (4.0-10.0)
[2022-02-17 08:59] LABS: BLOOD UREA NITROGEN 20.5 mg/dL (7-18)
[2022-02-17] MEDS: FINASTERIDE 5 MG TABLET (FP) PO SCH (09:49)
[2022-02-17] MEDS: APIXABAN 5 MG TABLET PO SCH ×2 (09:49→22:26)
[2022-02-17] MEDS: TAMSULOSIN HCL 0.4 MG CAP PO SCH (09:49)
[2022-02-17] MEDS ORDERED: NICOTINE 21 MG/24 HOURS TOPICAL PATCH TD SCH (15:30)
[2022-02-17] MEDS ORDERED: NICOTINE 21 MG/24 HOURS TOPICAL PATCH TD PRN (18:15)
[2022-02-17] MEDS: MIRTAZAPINE 15 MG TABLET (FP) PO SCH (22:26)
[2022-02-17] MEDS: metoPROLOL SUCCINATE 25 MG TAB.SR.24H (FP) PO SCH (22:26)
[2022-02-18] MEDS ORDERED: PIPERACILLIN/TAZOBACTAM 3.375 GM VIAL IVPB ONE ×3 (01:56→17:29)
[2022-02-18] MEDS ORDERED: DEXTROSE 5%-WATER - 50 ML IVPB ONE (01:56)
[2022-02-18] MEDS: PIPERACILLIN/TAZOB 3.375 GM 3.375 GM in DEXTROSE 5%-WATER - 50 ML IVPB SCH ×3 (02:10→17:32)
[2022-02-18] MEDS: INSULIN SLIDING SCALE (NOVOLOG) 1 VIAL SQ SCH ×4 (07:04→23:15)
[2022-02-18] MEDS: VANCOMYCIN/WATER FOR INJ (PEG) 750 MG/150 ML BAG IVPB SCH ×2 (07:04→18:48)
[2022-02-18] MEDS: APIXABAN 5 MG TABLET PO SCH ×2 (09:38→22:20)
[2022-02-18] MEDS: FINASTERIDE 5 MG TABLET (FP) PO SCH (09:38)
[2022-02-18] MEDS: TAMSULOSIN HCL 0.4 MG CAP PO SCH (09:38)
[2022-02-18 11:17] LABS: HEMATOCRIT 33.3 % (35.4-49); HEMOGLOBIN 11.1 GM/dL (11.7-16.9); MCH 30.1 pg (25.7-33.7); MCHC 33.4 g/dl (32.0-35.9); MEAN CELL VOLUME 90.2 fl (80-96); MEAN PLT VOLUME 9.5 fl (7.5-11.1); PLATELET COUNT 190 10^3/uL (134-434); RBC 3.69 M/mm3 (4.00-5.60); RDW 14.9 % (11.9-15.9); WHITE BLOOD COUNT 7.3 K/mm3 (4.0-10.0)
[2022-02-18 12:02] LABS: BLOOD UREA NITROGEN 21.5 mg/dL (7-18)
[2022-02-18 12:06] LABS: CREATININE 0.9 mg/dL (0.55-1.3)
[2022-02-18] MEDS: metoPROLOL SUCCINATE 25 MG TAB.SR.24H (FP) PO SCH (22:20)
[2022-02-18] MEDS: MIRTAZAPINE 15 MG TABLET (FP) PO SCH (22:21)
[2022-02-19] MEDS: PIPERACILLIN/TAZOB 3.375 GM 3.375 GM in DEXTROSE 5%-WATER - 50 ML IVPB SCH ×3 (02:00→16:59)
[2022-02-19] MEDS ORDERED: DEXTROSE 5%-WATER - 50 ML IVPB ONE ×2 (04:55→16:58)
[2022-02-19] MEDS ORDERED: PIPERACILLIN/TAZOBACTAM 3.375 GM VIAL IVPB ONE ×2 (04:55→16:57)
[2022-02-19 05:57] VITALS: TEMP 97.7
[2022-02-19] MEDS ORDERED: INSULIN (NOVOLOG) ASPART 100 UNITS/ML 10ML VIAL ONE (07:39)
[2022-02-19] MEDS: INSULIN SLIDING SCALE (NOVOLOG) 1 VIAL SQ SCH ×4 (07:46→22:50)
[2022-02-19] MEDS: VANCOMYCIN/WATER FOR INJ (PEG) 750 MG/150 ML BAG IVPB SCH ×2 (07:46→18:06)
[2022-02-19] MEDS: TAMSULOSIN HCL 0.4 MG CAP PO SCH (07:53)
[2022-02-19 08:42] LABS: HEMATOCRIT 33.4 % (35.4-49); HEMOGLOBIN 11.2 GM/dL (11.7-16.9); MCHC 33.4 g/dl (32.0-35.9); MEAN CELL VOLUME 89.8 fl (80-96); MEAN PLT VOLUME 9.6 fl (7.5-11.1); PLATELET COUNT 179 10^3/uL (134-434); RBC 3.72 M/mm3 (4.00-5.60); RDW 15.1 % (11.9-15.9); WHITE BLOOD COUNT 5.9 K/mm3 (4.0-10.0)
[2022-02-19 09:11] LABS: CALCIUM 8.4 mg/dL (8.5-10.1)
[2022-02-19 09:12] LABS: BLOOD UREA NITROGEN 17.8 mg/dL (7-18)
[2022-02-19 09:15] LABS: CREATININE 0.8 mg/dL (0.55-1.3)
[2022-02-19] MEDS: APIXABAN 5 MG TABLET PO SCH ×2 (10:56→22:45)
[2022-02-19] MEDS: FINASTERIDE 5 MG TABLET (FP) PO SCH (11:02)
[2022-02-19] MEDS: MIRTAZAPINE 15 MG TABLET (FP) PO SCH (22:45)
[2022-02-19] MEDS: metoPROLOL SUCCINATE 25 MG TAB.SR.24H (FP) PO SCH (22:45)
[2022-02-20] MEDS ORDERED: PIPERACILLIN/TAZOBACTAM 3.375 GM VIAL IVPB ONE ×3 (01:14→16:21)
[2022-02-20] MEDS ORDERED: DEXTROSE 5%-WATER - 50 ML IVPB ONE ×3 (01:15→16:21)
[2022-02-20] MEDS: PIPERACILLIN/TAZOB 3.375 GM 3.375 GM in DEXTROSE 5%-WATER - 50 ML IVPB SCH ×3 (02:03→17:03)
[2022-02-20] MEDS: INSULIN SLIDING SCALE (NOVOLOG) 1 VIAL SQ SCH ×3 (07:15→17:00)
[2022-02-20] MEDS: VANCOMYCIN/WATER FOR INJ (PEG) 750 MG/150 ML BAG IVPB SCH ×2 (07:15→18:52)
[2022-02-20 08:28] LABS: HEMATOCRIT 34.4 % (35.4-49); HEMOGLOBIN 11.5 GM/dL (11.7-16.9); MCHC 33.3 g/dl (32.0-35.9); MEAN CELL VOLUME 90.2 fl (80-96); PLATELET COUNT 176 10^3/uL (134-434); RBC 3.82 M/mm3 (4.00-5.60); RDW 15.2 % (11.9-15.9); WHITE BLOOD COUNT 6.3 K/mm3 (4.0-10.0)
[2022-02-20] MEDS: TAMSULOSIN HCL 0.4 MG CAP PO SCH (08:42)
[2022-02-20 08:47] LABS: CALCIUM 9.1 mg/dL (8.5-10.1)
[2022-02-20 08:48] LABS: BLOOD UREA NITROGEN 20.6 mg/dL (7-18)
[2022-02-20 08:51] LABS: CREATININE 0.8 mg/dL (0.55-1.3)
[2022-02-20] MEDS: APIXABAN 5 MG TABLET PO SCH (09:11)
[2022-02-20] MEDS: FINASTERIDE 5 MG TABLET (FP) PO SCH (09:11)
[2022-02-20 15:33] VITALS: BP 132/61; PULSE 70
[2022-02-20] MEDS ORDERED: ERTAPENEM SODIUM 1 GM in SODIUM CHLORIDE 50 ML IVPB SCH (15:45)
[2022-02-20] MEDS ORDERED: ERTAPENEM SODIUM 1 GM VIAL ONE (16:01)
[2022-02-20] MEDS ORDERED: SODIUM CHLORIDE 50 ML IVPB ONE (16:02)
== END 2022-02-20 20:30 | disposition home or self-care (01) | DRG 638 ==
LOC: JER 11:47 → JERBED 16:37 → J6S 02-11 17:47 → J7W 02-18 18:39
PROVIDERS: ADMIT Internal Medicine; ATTEND Internal Medicine
PROC: 02HV33Z Insertion of Infusion Device into Superior Vena Cava, Percutaneous Approach (ICD-10-PCS; principal; 2022-02-20)
PROC: B518ZZA Fluoroscopy of Superior Vena Cava, Guidance (ICD-10-PCS; 2022-02-20)
DX: E11.69 Type 2 diabetes mellitus with other specified complication (principal); L03.116 Cellulitis of left lower limb; I50.32 Chronic diastolic (congestive) heart failure; M86.8X7 Other osteomyelitis, ankle and foot; L97.528 Non-pressure chronic ulcer of other part of left foot with other specified severity; I48.91 Unspecified atrial fibrillation; E78.5 Hyperlipidemia, unspecified; F03.90 Unspecified dementia, unspecified severity, without behavioral disturbance, psychotic disturbance, mood disturbance, and anxiety; I11.0 Hypertensive heart disease with heart failure; B95.2 Enterococcus as the cause of diseases classified elsewhere; B96.89 Other specified bacterial agents as the cause of diseases classified elsewhere; B95.62 Methicillin resistant Staphylococcus aureus infection as the cause of diseases classified elsewhere; E88.81 Metabolic syndrome and other insulin resistance; E11.621 Type 2 diabetes mellitus with foot ulcer; F17.200 Nicotine dependence, unspecified, uncomplicated
CPT/HCPCS: 36415; 36569; 73630-TC-LT; 73718-TC-LT; 80048; 80053; 81003; 82962; 83735; 84100; 85025; 85027; 85610; 85651; 85730; 86140; 87040; 87070; 87077; 87186; 87205; 93005; 93010; 93971-TC; 99285-25; C9803-CS; G0463-25; G0480; U0003; U0005

== ENCOUNTER 2022-02-21 20:55 | Inpatient (IN) | payer OTHER, BC ==
[2022-02-21] MEDS ORDERED: VANCOMYCIN 750 MG in DEXTROSE 5%-WATER - 250 ML IVPB ONE (21:39)
[2022-02-21 22:55] LABS: BASO % 1.4 % (0-2.0); EOS % 3.5 % (0-4.5); HEMATOCRIT 36.2 % (35.4-49); HEMOGLOBIN 12.1 GM/dL (11.7-16.9); LYMPH % 19.1 % (8-40); MCHC 33.4 g/dl (32.0-35.9); MEAN CELL VOLUME 89.6 fl (80-96); MEAN PLT VOLUME 9.5 fl (7.5-11.1); MONO % 7.8 % (3.8-10.2); NEUT % 68.2 % (42.8-82.8); PLATELET COUNT 214 10^3/uL (134-434); RBC 4.04 M/mm3 (4.00-5.60); RDW 15.2 % (11.9-15.9); WHITE BLOOD COUNT 9.7 K/mm3 (4.0-10.0)
[2022-02-21 23:34] LABS: ERYTHROCYTE SEDIMENTATION RATE 79 mm/hr (0-20)
[2022-02-22 00:11] LABS: CALCIUM 9.9 mg/dL (8.5-10.1)
[2022-02-22 00:17] LABS: BILIRUBIN,TOTAL 0.6 mg/dL (0.2-1)
[2022-02-22 00:19] LABS: CREATININE 0.9 mg/dL (0.55-1.3)
[2022-02-22 00:22] LABS: TOT PROT 9.2 g/dl (6.4-8.2)
[2022-02-22 00:25] LABS: BLOOD UREA NITROGEN 19.2 mg/dL (7-18)
[2022-02-22 00:38] LABS: ALBUMIN 4.2 g/dl (3.4-5.0)
[2022-02-22] MEDS ORDERED: ACETAMINOPHEN 325 MG TABLET (FP) PO PRN (01:47)
[2022-02-22] MEDS ORDERED: MULTIVITAMINS (DAILY MVI) TABLET (FP) ONE (09:15)
[2022-02-22] MEDS ORDERED: TAMSULOSIN HCL 0.4 MG CAP ONE (09:15)
[2022-02-22] MEDS ORDERED: APIXABAN 5 MG TABLET ONE (09:15)
[2022-02-22] MEDS ORDERED: ERTAPENEM SODIUM 1 GM VIAL ONE (09:16)
[2022-02-22] MEDS: FUROSEMIDE 40 MG TABLET (FP) PO SCH (09:29)
[2022-02-22] MEDS: APIXABAN 5 MG TABLET PO SCH ×2 (09:29→23:30)
[2022-02-22] MEDS: FINASTERIDE 5 MG TABLET (FP) PO SCH (09:29)
[2022-02-22] MEDS: ERTAPENEM SODIUM 1 GM in SODIUM CHLORIDE 50 ML IVPB SCH (09:29)
[2022-02-22] MEDS: TAMSULOSIN HCL 0.4 MG CAP PO SCH (09:29)
[2022-02-22] MEDS: MULTIVITAMINS (DAILY MVI) TABLET (FP) PO SCH (09:29)
[2022-02-22] MEDS ORDERED: FUROSEMIDE 40 MG TABLET (FP) ONE (09:30)
[2022-02-22] MEDS ORDERED: MYRBETRIQ 25 MG PO SCH (10:00)
[2022-02-22] MEDS ORDERED: VANCOMYCIN 750 MG in DEXTROSE 5%-WATER - 150 ML IVPB SCH (11:00)
[2022-02-22] MEDS: VANCOMYCIN/WATER FOR INJ (PEG) 750 MG/150 ML BAG IVPB SCH ×2 (13:45→23:30)
[2022-02-22] MEDS ORDERED: MIRTAZAPINE 15 MG TABLET (FP) ONE (22:24)
[2022-02-22] MEDS: metoPROLOL SUCCINATE 25 MG TAB.SR.24H (FP) PO SCH (23:30)
[2022-02-22] MEDS: MIRTAZAPINE 15 MG TABLET (FP) PO SCH (23:30)
[2022-02-23] MEDS ORDERED: metoPROLOL SUCCINATE 25 MG TAB.SR.24H (FP) PO ONE ×2 (00:02→20:51)
[2022-02-23 07:39] LABS: HEMATOCRIT 34.4 % (35.4-49); HEMOGLOBIN 11.4 GM/dL (11.7-16.9); MCH 29.8 pg (25.7-33.7); MCHC 33.3 g/dl (32.0-35.9); MEAN CELL VOLUME 89.7 fl (80-96); MEAN PLT VOLUME 10.3 fl (7.5-11.1); PLATELET COUNT 179 10^3/uL (134-434); RBC 3.84 M/mm3 (4.00-5.60); RDW 15.2 % (11.9-15.9); WHITE BLOOD COUNT 5.5 K/mm3 (4.0-10.0)
[2022-02-23 07:58] LABS: BLOOD UREA NITROGEN 20.1 mg/dL (7-18)
[2022-02-23 08:01] LABS: CREATININE 0.7 mg/dL (0.55-1.3); PHOSPHOROUS 3.5 mg/dL (2.5-4.9)
[2022-02-23] MEDS ORDERED: MULTIVITAMINS (DAILY MVI) TABLET (FP) ONE (09:13)
[2022-02-23] MEDS ORDERED: TAMSULOSIN HCL 0.4 MG CAP ONE (09:13)
[2022-02-23] MEDS ORDERED: FUROSEMIDE 40 MG TABLET (FP) ONE (09:13)
[2022-02-23] MEDS ORDERED: APIXABAN 5 MG TABLET ONE ×2 (09:13→21:23)
[2022-02-23] MEDS ORDERED: ERTAPENEM SODIUM 1 GM VIAL ONE (09:14)
[2022-02-23] MEDS: MULTIVITAMINS (DAILY MVI) TABLET (FP) PO SCH (09:29)
[2022-02-23] MEDS: APIXABAN 5 MG TABLET PO SCH ×2 (09:29→21:41)
[2022-02-23] MEDS: TAMSULOSIN HCL 0.4 MG CAP PO SCH (09:29)
[2022-02-23] MEDS: FUROSEMIDE 40 MG TABLET (FP) PO SCH (09:29)
[2022-02-23] MEDS: FINASTERIDE 5 MG TABLET (FP) PO SCH (09:29)
[2022-02-23] MEDS: ERTAPENEM SODIUM 1 GM in SODIUM CHLORIDE 50 ML IVPB SCH (09:29)
[2022-02-23] MEDS ORDERED: VANCOMYCIN 750 MG in DEXTROSE 5%-WATER - 150 ML IVPB SCH (11:00)
[2022-02-23] MEDS: VANCOMYCIN/WATER FOR INJ (PEG) 750 MG/150 ML BAG IVPB SCH ×2 (11:50→21:41)
[2022-02-23] MEDS ORDERED: MIRTAZAPINE 15 MG TABLET (FP) ONE (20:51)
[2022-02-23] MEDS ORDERED: VANCOMYCIN 1 GRAM (PRE-DOCKED) 1,000 MG/250 ML BAG IVPB ONE (21:23)
[2022-02-23] MEDS: metoPROLOL SUCCINATE 25 MG TAB.SR.24H (FP) PO SCH (21:41)
[2022-02-23] MEDS: MIRTAZAPINE 15 MG TABLET (FP) PO SCH (21:41)
[2022-02-24 04:33] VITALS: BMI 22.8
[2022-02-24 08:30] LABS: HEMOGLOBIN 11.8 GM/dL (11.7-16.9); MCH 30.1 pg (25.7-33.7); MCHC 33.6 g/dl (32.0-35.9); MEAN CELL VOLUME 89.6 fl (80-96); MEAN PLT VOLUME 10.5 fl (7.5-11.1); PLATELET COUNT 184 10^3/uL (134-434); RBC 3.91 M/mm3 (4.00-5.60); WHITE BLOOD COUNT 5.9 K/mm3 (4.0-10.0)
[2022-02-24 08:51] LABS: CREATININE 0.8 mg/dL (0.55-1.3)
[2022-02-24] MEDS ORDERED: ERTAPENEM SODIUM 1 GM VIAL ONE (09:26)
[2022-02-24] MEDS ORDERED: SODIUM CHLORIDE 50 ML IVPB ONE (09:26)
[2022-02-24] MEDS: TAMSULOSIN HCL 0.4 MG CAP PO SCH (09:55)
[2022-02-24] MEDS: APIXABAN 5 MG TABLET PO SCH ×2 (10:18→23:16)
[2022-02-24] MEDS: FINASTERIDE 5 MG TABLET (FP) PO SCH (10:18)
[2022-02-24] MEDS: MULTIVITAMINS (DAILY MVI) TABLET (FP) PO SCH (10:18)
[2022-02-24] MEDS: ERTAPENEM SODIUM 1 GM in SODIUM CHLORIDE 50 ML IVPB SCH (10:19)
[2022-02-24] MEDS: VANCOMYCIN/WATER FOR INJ (PEG) 750 MG/150 ML BAG IVPB SCH ×2 (10:20→23:16)
[2022-02-24] MEDS: FUROSEMIDE 40 MG TABLET (FP) PO SCH (10:21)
[2022-02-24] MEDS: AMINO ACIDS/PROTEIN HYDROLYS 30 ML LIQUID.PKT PO SCH (17:11)
[2022-02-24] MEDS: metoPROLOL SUCCINATE 25 MG TAB.SR.24H (FP) PO SCH (23:16)
[2022-02-24] MEDS: MIRTAZAPINE 15 MG TABLET (FP) PO SCH (23:16)
[2022-02-25] MEDS ORDERED: ERTAPENEM SODIUM 1 GM VIAL ONE (09:12)
[2022-02-25] MEDS ORDERED: SODIUM CHLORIDE 50 ML IVPB ONE (09:13)
[2022-02-25] MEDS: AMINO ACIDS/PROTEIN HYDROLYS 30 ML LIQUID.PKT PO SCH ×2 (10:08→16:41)
[2022-02-25] MEDS: MULTIVITAMINS (DAILY MVI) TABLET (FP) PO SCH (10:08)
[2022-02-25] MEDS: FUROSEMIDE 40 MG TABLET (FP) PO SCH (10:08)
[2022-02-25] MEDS: TAMSULOSIN HCL 0.4 MG CAP PO SCH (10:08)
[2022-02-25] MEDS: APIXABAN 5 MG TABLET PO SCH ×2 (10:08→21:25)
[2022-02-25] MEDS: VANCOMYCIN/WATER FOR INJ (PEG) 750 MG/150 ML BAG IVPB SCH ×2 (10:09→22:43)
[2022-02-25] MEDS: FINASTERIDE 5 MG TABLET (FP) PO SCH (10:09)
[2022-02-25] MEDS: ERTAPENEM SODIUM 1 GM in SODIUM CHLORIDE 50 ML IVPB SCH (11:46)
[2022-02-25] MEDS: MIRTAZAPINE 15 MG TABLET (FP) PO SCH (21:25)
[2022-02-25] MEDS: metoPROLOL SUCCINATE 25 MG TAB.SR.24H (FP) PO SCH (21:25)
[2022-02-26] MEDS ORDERED: ERTAPENEM SODIUM 1 GM VIAL ONE (09:35)
[2022-02-26] MEDS ORDERED: SODIUM CHLORIDE 50 ML IVPB ONE (09:35)
[2022-02-26] MEDS: APIXABAN 5 MG TABLET PO SCH ×2 (09:51→21:51)
[2022-02-26] MEDS: TAMSULOSIN HCL 0.4 MG CAP PO SCH (09:51)
[2022-02-26] MEDS: ERTAPENEM SODIUM 1 GM in SODIUM CHLORIDE 50 ML IVPB SCH (09:51)
[2022-02-26] MEDS: AMINO ACIDS/PROTEIN HYDROLYS 30 ML LIQUID.PKT PO SCH ×2 (09:51→17:49)
[2022-02-26] MEDS: MULTIVITAMINS (DAILY MVI) TABLET (FP) PO SCH (09:52)
[2022-02-26] MEDS: FUROSEMIDE 40 MG TABLET (FP) PO SCH (09:52)
[2022-02-26] MEDS: FINASTERIDE 5 MG TABLET (FP) PO SCH (09:52)
[2022-02-26] MEDS: VANCOMYCIN/WATER FOR INJ (PEG) 750 MG/150 ML BAG IVPB SCH (11:23)
[2022-02-26] MEDS: metoPROLOL SUCCINATE 25 MG TAB.SR.24H (FP) PO SCH (21:51)
[2022-02-26] MEDS: MIRTAZAPINE 15 MG TABLET (FP) PO SCH (21:51)
[2022-02-27] MEDS ORDERED: ERTAPENEM SODIUM 1 GM VIAL ONE (08:43)
[2022-02-27] MEDS ORDERED: SODIUM CHLORIDE 50 ML IVPB ONE (08:43)
[2022-02-27] MEDS: AMINO ACIDS/PROTEIN HYDROLYS 30 ML LIQUID.PKT PO SCH ×2 (08:56→18:31)
[2022-02-27] MEDS: TAMSULOSIN HCL 0.4 MG CAP PO SCH (08:56)
[2022-02-27] MEDS: APIXABAN 5 MG TABLET PO SCH ×2 (09:12→21:12)
[2022-02-27] MEDS: FUROSEMIDE 40 MG TABLET (FP) PO SCH (09:12)
[2022-02-27] MEDS: ERTAPENEM SODIUM 1 GM in SODIUM CHLORIDE 50 ML IVPB SCH (09:13)
[2022-02-27] MEDS: FINASTERIDE 5 MG TABLET (FP) PO SCH (09:13)
[2022-02-27] MEDS: MULTIVITAMINS (DAILY MVI) TABLET (FP) PO SCH (09:13)
[2022-02-27] MEDS: VANCOMYCIN/WATER FOR INJ (PEG) 750 MG/150 ML BAG IVPB SCH (12:45)
[2022-02-27] MEDS: metoPROLOL SUCCINATE 25 MG TAB.SR.24H (FP) PO SCH (21:12)
[2022-02-27] MEDS: MIRTAZAPINE 15 MG TABLET (FP) PO SCH (21:12)
[2022-02-28] MEDS: VANCOMYCIN 500 MG in DEXTROSE 5%-WATER 100 ML IVPB SCH ×2 (00:29→23:08)
[2022-02-28] MEDS ORDERED: SODIUM CHLORIDE 50 ML IVPB ONE (09:20)
[2022-02-28] MEDS ORDERED: ERTAPENEM SODIUM 1 GM VIAL ONE (09:20)
[2022-02-28] MEDS: AMINO ACIDS/PROTEIN HYDROLYS 30 ML LIQUID.PKT PO SCH ×2 (09:36→17:31)
[2022-02-28] MEDS: FUROSEMIDE 40 MG TABLET (FP) PO SCH (09:36)
[2022-02-28] MEDS: TAMSULOSIN HCL 0.4 MG CAP PO SCH (09:36)
[2022-02-28] MEDS: FINASTERIDE 5 MG TABLET (FP) PO SCH (09:36)
[2022-02-28] MEDS: MULTIVITAMINS (DAILY MVI) TABLET (FP) PO SCH (09:36)
[2022-02-28] MEDS: APIXABAN 5 MG TABLET PO SCH ×2 (09:36→23:00)
[2022-02-28] MEDS: ERTAPENEM SODIUM 1 GM in SODIUM CHLORIDE 50 ML IVPB SCH (09:39)
[2022-02-28] MEDS: NICOTINE 14 MG/24 HOURS TOPICAL PATCH TD SCH (13:55)
[2022-02-28] MEDS: VANCOMYCIN/WATER FOR INJ (PEG) 750 MG/150 ML BAG IVPB SCH (15:01)
[2022-02-28] MEDS: LACTOBACILLUS ACIDOPHILUS 1 TABLET PO SCH (17:31)
[2022-02-28] MEDS: MIRTAZAPINE 15 MG TABLET (FP) PO SCH (23:00)
[2022-02-28] MEDS: metoPROLOL SUCCINATE 25 MG TAB.SR.24H (FP) PO SCH (23:00)
[2022-02-28] MEDS ORDERED: INSULIN (NOVOLOG) ASPART 100 UNITS/ML 10ML VIAL SQ ONE (23:32)
[2022-03-01] MEDS: INSULIN SLIDING SCALE (NOVOLOG) 1 VIAL SQ SCH ×4 (06:28→21:33)
[2022-03-01] MEDS ORDERED: INSULIN SLIDING SCALE (NOVOLOG) 1 VIAL SQ SCH (07:00)
[2022-03-01] MEDS: TAMSULOSIN HCL 0.4 MG CAP PO SCH (07:55)
[2022-03-01] MEDS: AMINO ACIDS/PROTEIN HYDROLYS 30 ML LIQUID.PKT PO SCH ×2 (07:55→16:47)
[2022-03-01 08:54] LABS: BASO % 2.2 % (0-2.0); EOS % 6.1 % (0-4.5); HEMATOCRIT 33.9 % (35.4-49); HEMOGLOBIN 11.3 GM/dL (11.7-16.9); LYMPH % 20.8 % (8-40); MCH 29.9 pg (25.7-33.7); MCHC 33.3 g/dl (32.0-35.9); MEAN CELL VOLUME 89.8 fl (80-96); MEAN PLT VOLUME 10.8 fl (7.5-11.1); MONO % 11.7 % (3.8-10.2); NEUT % 59.2 % (42.8-82.8); PLATELET COUNT 173 10^3/uL (134-434); RBC 3.78 M/mm3 (4.00-5.60); RDW 14.8 % (11.9-15.9)
[2022-03-01 08:55] LABS: INR 1.52 (0.83-1.09); PROTHROMBIN TIME (PATIENT) 17.6 SEC (9.7-13.0)
[2022-03-01 08:58] LABS: ACTIVATED PTT 40.3 SECONDS (25.2-36.5)
[2022-03-01] MEDS ORDERED: SODIUM CHLORIDE 50 ML IVPB ONE (09:04)
[2022-03-01] MEDS ORDERED: ERTAPENEM SODIUM 1 GM VIAL ONE (09:04)
[2022-03-01] MEDS: FINASTERIDE 5 MG TABLET (FP) PO SCH (09:06)
[2022-03-01] MEDS: APIXABAN 5 MG TABLET PO SCH ×2 (09:06→21:29)
[2022-03-01] MEDS: LACTOBACILLUS ACIDOPHILUS 1 TABLET PO SCH (09:06)
[2022-03-01] MEDS: FUROSEMIDE 40 MG TABLET (FP) PO SCH (09:06)
[2022-03-01] MEDS: MULTIVITAMINS (DAILY MVI) TABLET (FP) PO SCH (09:06)
[2022-03-01] MEDS: ERTAPENEM SODIUM 1 GM in SODIUM CHLORIDE 50 ML IVPB SCH (09:06)
[2022-03-01] MEDS: NICOTINE 14 MG/24 HOURS TOPICAL PATCH TD SCH (09:07)
[2022-03-01 09:14] LABS: BLOOD UREA NITROGEN 33.8 mg/dL (7-18)
[2022-03-01 09:17] LABS: CREATININE 0.9 mg/dL (0.55-1.3)
[2022-03-01 09:19] LABS: BILIRUBIN,TOTAL 0.5 mg/dL (0.2-1); TOT PROT 7.3 g/dl (6.4-8.2)
[2022-03-01 09:21] LABS: ALBUMIN 3.2 g/dl (3.4-5.0)
[2022-03-01] MEDS: VANCOMYCIN/WATER FOR INJ (PEG) 750 MG/150 ML BAG IVPB SCH (11:46)
[2022-03-01] MEDS: metoPROLOL SUCCINATE 25 MG TAB.SR.24H (FP) PO SCH (21:29)
[2022-03-01] MEDS: MIRTAZAPINE 15 MG TABLET (FP) PO SCH (21:29)
[2022-03-01] MEDS ORDERED: Insulin (LOG) Aspart 100 UNITS/ML VIAL SQ ONE (23:18)
[2022-03-02] MEDS: VANCOMYCIN 500 MG in DEXTROSE 5%-WATER 100 ML IVPB SCH (03:03)
[2022-03-02] MEDS: INSULIN SLIDING SCALE (NOVOLOG) 1 VIAL SQ SCH ×4 (06:03→21:25)
[2022-03-02 10:09] LABS: EOS % 5.5 % (0-4.5); HEMATOCRIT 35.2 % (35.4-49); HEMOGLOBIN 11.8 GM/dL (11.7-16.9); LYMPH % 20.9 % (8-40); MCH 30.2 pg (25.7-33.7); MCHC 33.5 g/dl (32.0-35.9); MEAN CELL VOLUME 89.9 fl (80-96); MEAN PLT VOLUME 10.9 fl (7.5-11.1); MONO % 9.5 % (3.8-10.2); NEUT % 62.1 % (42.8-82.8); PLATELET COUNT 179 10^3/uL (134-434); RBC 3.91 M/mm3 (4.00-5.60); WHITE BLOOD COUNT 6.9 K/mm3 (4.0-10.0)
[2022-03-02] MEDS ORDERED: ERTAPENEM SODIUM 1 GM VIAL ONE (10:20)
[2022-03-02] MEDS ORDERED: SODIUM CHLORIDE 50 ML IVPB ONE (10:20)
[2022-03-02 10:25] LABS: BLOOD UREA NITROGEN 34.2 mg/dL (7-18); CALCIUM 9.2 mg/dL (8.5-10.1)
[2022-03-02 10:26] LABS: ALBUMIN 3.5 g/dl (3.4-5.0)
[2022-03-02 10:29] LABS: CREATININE 0.9 mg/dL (0.55-1.3)
[2022-03-02 10:30] LABS: BILIRUBIN,TOTAL 0.9 mg/dL (0.2-1); TOT PROT 7.8 g/dl (6.4-8.2)
[2022-03-02] MEDS: TAMSULOSIN HCL 0.4 MG CAP PO SCH (11:23)
[2022-03-02] MEDS: AMINO ACIDS/PROTEIN HYDROLYS 30 ML LIQUID.PKT PO SCH ×2 (11:23→17:18)
[2022-03-02] MEDS: FINASTERIDE 5 MG TABLET (FP) PO SCH (11:23)
[2022-03-02] MEDS: FUROSEMIDE 40 MG TABLET (FP) PO SCH (11:23)
[2022-03-02] MEDS: LACTOBACILLUS ACIDOPHILUS 1 TABLET PO SCH (11:24)
[2022-03-02] MEDS: ERTAPENEM SODIUM 1 GM in SODIUM CHLORIDE 50 ML IVPB SCH (11:24)
[2022-03-02] MEDS: MULTIVITAMINS (DAILY MVI) TABLET (FP) PO SCH (11:24)
[2022-03-02] MEDS: APIXABAN 5 MG TABLET PO SCH ×2 (11:24→21:24)
[2022-03-02] MEDS: NICOTINE 14 MG/24 HOURS TOPICAL PATCH TD SCH (11:43)
[2022-03-02] MEDS: VANCOMYCIN/WATER FOR INJ (PEG) 750 MG/150 ML BAG IVPB SCH (13:07)
[2022-03-02] MEDS: metoPROLOL SUCCINATE 25 MG TAB.SR.24H (FP) PO SCH (21:24)
[2022-03-02] MEDS: MIRTAZAPINE 15 MG TABLET (FP) PO SCH (21:24)
[2022-03-03] MEDS ORDERED: VANCOMYCIN 500 MG VIAL (RESTRICTED TO ID ONLY) ONE (00:50)
[2022-03-03] MEDS ORDERED: DEXTROSE 5%-WATER 100 ML IVPB ONE (00:50)
[2022-03-03] MEDS: VANCOMYCIN 500 MG in DEXTROSE 5%-WATER 100 ML IVPB SCH ×2 (01:30→23:49)
[2022-03-03] MEDS: INSULIN SLIDING SCALE (NOVOLOG) 1 VIAL SQ SCH ×4 (06:14→21:14)
[2022-03-03] MEDS ORDERED: ERTAPENEM SODIUM 1 GM VIAL ONE (09:15)
[2022-03-03] MEDS ORDERED: SODIUM CHLORIDE 50 ML IVPB ONE (09:15)
[2022-03-03 09:47] LABS: BASO % 1.3 % (0-2.0); EOS % 5.4 % (0-4.5); HEMATOCRIT 33.7 % (35.4-49); HEMOGLOBIN 11.4 GM/dL (11.7-16.9); LYMPH % 19.7 % (8-40); MCH 30.4 pg (25.7-33.7); MCHC 33.8 g/dl (32.0-35.9); MEAN CELL VOLUME 89.7 fl (80-96); MEAN PLT VOLUME 10.6 fl (7.5-11.1); MONO % 11.9 % (3.8-10.2); NEUT % 61.7 % (42.8-82.8); PLATELET COUNT 151 10^3/uL (134-434); RBC 3.76 M/mm3 (4.00-5.60); RDW 14.8 % (11.9-15.9); WHITE BLOOD COUNT 6.6 K/mm3 (4.0-10.0)
[2022-03-03] MEDS: AMINO ACIDS/PROTEIN HYDROLYS 30 ML LIQUID.PKT PO SCH ×2 (09:47→17:16)
[2022-03-03] MEDS: ERTAPENEM SODIUM 1 GM in SODIUM CHLORIDE 50 ML IVPB SCH (09:48)
[2022-03-03] MEDS: TAMSULOSIN HCL 0.4 MG CAP PO SCH (09:50)
[2022-03-03] MEDS: LACTOBACILLUS ACIDOPHILUS 1 TABLET PO SCH (09:50)
[2022-03-03] MEDS: MULTIVITAMINS (DAILY MVI) TABLET (FP) PO SCH (09:51)
[2022-03-03] MEDS: FINASTERIDE 5 MG TABLET (FP) PO SCH (09:51)
[2022-03-03] MEDS: APIXABAN 5 MG TABLET PO SCH ×2 (09:51→21:09)
[2022-03-03] MEDS: FUROSEMIDE 40 MG TABLET (FP) PO SCH (09:51)
[2022-03-03] MEDS: NICOTINE 14 MG/24 HOURS TOPICAL PATCH TD SCH (09:54)
[2022-03-03 10:06] LABS: ALBUMIN 3.4 g/dl (3.4-5.0)
[2022-03-03 10:08] LABS: BLOOD UREA NITROGEN 37.3 mg/dL (7-18)
[2022-03-03 10:13] LABS: CREATININE 0.8 mg/dL (0.55-1.3)
[2022-03-03 10:14] LABS: BILIRUBIN,TOTAL 0.6 mg/dL (0.2-1); TOT PROT 7.6 g/dl (6.4-8.2)
[2022-03-03] MEDS: VANCOMYCIN/WATER FOR INJ (PEG) 750 MG/150 ML BAG IVPB SCH (12:27)
[2022-03-03] MEDS: MIRTAZAPINE 15 MG TABLET (FP) PO SCH (21:09)
[2022-03-03] MEDS: metoPROLOL SUCCINATE 25 MG TAB.SR.24H (FP) PO SCH (21:09)
[2022-03-04] MEDS: INSULIN SLIDING SCALE (NOVOLOG) 1 VIAL SQ SCH ×2 (06:44→11:57)
[2022-03-04] MEDS ORDERED: ERTAPENEM SODIUM 1 GM VIAL ONE ×2 (11:23→11:25)
[2022-03-04] MEDS ORDERED: SODIUM CHLORIDE 50 ML IVPB ONE (11:23)
[2022-03-04] MEDS: ERTAPENEM SODIUM 1 GM in SODIUM CHLORIDE 50 ML IVPB SCH (11:45)
[2022-03-04] MEDS: LACTOBACILLUS ACIDOPHILUS 1 TABLET PO SCH (11:46)
[2022-03-04] MEDS: FINASTERIDE 5 MG TABLET (FP) PO SCH (11:46)
[2022-03-04] MEDS: APIXABAN 5 MG TABLET PO SCH (11:47)
[2022-03-04] MEDS: NICOTINE 14 MG/24 HOURS TOPICAL PATCH TD SCH (11:47)
[2022-03-04] MEDS: TAMSULOSIN HCL 0.4 MG CAP PO SCH (11:47)
[2022-03-04] MEDS: FUROSEMIDE 40 MG TABLET (FP) PO SCH (11:47)
[2022-03-04] MEDS: MULTIVITAMINS (DAILY MVI) TABLET (FP) PO SCH (11:47)
[2022-03-04] MEDS: AMINO ACIDS/PROTEIN HYDROLYS 30 ML LIQUID.PKT PO SCH (11:47)
[2022-03-04] MEDS ORDERED: VANCOMYCIN 750 MG in DEXTROSE 5%-WATER - 250 ML IVPB ONE (12:00)
[2022-03-04] MEDS ORDERED: VANCOMYCIN 750 MG in DEXTROSE 5%-WATER - 250 ML IVPB SCH ×2 (12:00→12:50)
[2022-03-04] MEDS: VANCOMYCIN/WATER FOR INJ (PEG) 750 MG/150 ML BAG IVPB SCH (13:02)
[2022-03-04 15:14] VITALS: BP 111/58; PULSE 65; TEMP 98.3
== END 2022-03-04 16:53 | DRG 638 ==
LOC: JER 20:55 → JERBED 21:56 → OBSVTOIN 02-22 01:07 → J7W 02-24 01:54
PROVIDERS: ADMIT Hospitalist; ATTEND Internal Medicine
DX: E11.69 Type 2 diabetes mellitus with other specified complication (principal); L97.528 Non-pressure chronic ulcer of other part of left foot with other specified severity; L03.116 Cellulitis of left lower limb; M86.672 Other chronic osteomyelitis, left ankle and foot; E11.621 Type 2 diabetes mellitus with foot ulcer; E78.5 Hyperlipidemia, unspecified; I48.91 Unspecified atrial fibrillation; F03.90 Unspecified dementia, unspecified severity, without behavioral disturbance, psychotic disturbance, mood disturbance, and anxiety; F17.210 Nicotine dependence, cigarettes, uncomplicated; I11.0 Hypertensive heart disease with heart failure; I50.9 Heart failure, unspecified; D64.9 Anemia, unspecified; R33.8 Other retention of urine; L89.322 Pressure ulcer of left buttock, stage 2; L89.312 Pressure ulcer of right buttock, stage 2
CPT/HCPCS: 36415; 80048; 80053; 82962; 83735; 84100; 85025; 85027; 85610; 85651; 85730; 86140; 87040; 97116-GP; 97162-GP; 99285-25; C9803-CS; G0378; G0480; U0003; U0005

== ENCOUNTER 2023-02-28 12:23 | Observation (INO) | payer OTHER, BC ==
[2023-02-28 12:55] VITALS: BMI 26.4
[2023-02-28 14:21] LABS: BASO % 0.9 % (0-2.0); EOS % 4.8 % (0-4.5); HEMATOCRIT 38.4 % (35.4-49); HEMOGLOBIN 12.4 GM/dL (11.7-16.9); LYMPH % 18.5 % (8-40); MCH 28.2 pg (25.7-33.7); MCHC 32.2 g/dl (32.0-35.9); MEAN CELL VOLUME 87.5 fl (80-96); MEAN PLT VOLUME 10.7 fl (7.5-11.1); MONO % 5.6 % (3.8-10.2); NEUT % 70.2 % (42.8-82.8); PLATELET COUNT 247 10^3/uL (134-434); RBC 4.39 M/mm3 (4.00-5.60); RDW 16.5 % (11.9-15.9); WHITE BLOOD COUNT 8.7 K/mm3 (4.0-10.0)
[2023-02-28 14:25] LABS: INR 1.62 (0.83-1.09); PROTHROMBIN TIME (PATIENT) 18.7 SEC (9.7-13.0)
[2023-02-28 14:28] LABS: ACTIVATED PTT 38.2 SECONDS (25.2-36.5)
[2023-02-28 14:37] LABS: POTASSIUM 4.4 mmol/L (3.5-5.1)
[2023-02-28 14:39] LABS: ALBUMIN 3.8 g/dl (3.4-5.0); BLOOD UREA NITROGEN 15.9 mg/dL (7-18); CALCIUM 9.5 mg/dL (8.5-10.1)
[2023-02-28 14:42] LABS: CREATININE 0.9 mg/dL (0.55-1.3)
[2023-02-28 14:44] LABS: BILIRUBIN,TOTAL 0.4 mg/dL (0.2-1); TOT PROT 8.3 g/dl (6.4-8.2)
[2023-02-28 14:47] LABS: N-TERMINAL BNP 1775.5 pg/ml (5-450)
[2023-02-28] MEDS ORDERED: ACETAMINOPHEN 325 MG TABLET (FP) PO PRN (17:10)
[2023-02-28] MEDS ORDERED: FUROSEMIDE 40 MG/4 ML INJECTABLE VIAL ONE (18:31)
[2023-02-28] MEDS: FUROSEMIDE 40 MG/4 ML INJECTABLE VIAL IVPUSH SCH (18:46)
[2023-02-28] MEDS ORDERED: metoPROLOL SUCCINATE 25 MG TAB.SR.24H (FP) PO SCH (22:00)
[2023-02-28] MEDS: APIXABAN 5 MG TABLET PO SCH (22:22)
[2023-02-28] MEDS: MIRTAZAPINE 15 MG TABLET (FP) PO SCH (22:22)
[2023-02-28] MEDS: INSULIN SLIDING SCALE (NOVOLOG) 1 VIAL SQ SCH (22:22)
[2023-03-01] MEDS: INSULIN SLIDING SCALE (NOVOLOG) 1 VIAL SQ SCH ×4 (06:29→21:29)
[2023-03-01 07:30] LABS: POTASSIUM 3.8 mmol/L (3.5-5.1)
[2023-03-01 07:35] LABS: CALCIUM 8.7 mg/dL (8.5-10.1)
[2023-03-01 07:36] LABS: BLOOD UREA NITROGEN 17.4 mg/dL (7-18)
[2023-03-01 07:39] LABS: TOT PROT 6.7 g/dl (6.4-8.2)
[2023-03-01 07:40] LABS: BILIRUBIN,TOTAL 0.4 mg/dL (0.2-1)
[2023-03-01 07:47] LABS: EOS % 5.5 % (0-4.5); HEMATOCRIT 34.5 % (35.4-49); HEMOGLOBIN 11.3 GM/dL (11.7-16.9); LYMPH % 20.5 % (8-40); MCH 28.4 pg (25.7-33.7); MCHC 32.8 g/dl (32.0-35.9); MEAN CELL VOLUME 86.5 fl (80-96); MEAN PLT VOLUME 10.9 fl (7.5-11.1); MONO % 8.4 % (3.8-10.2); NEUT % 63.6 % (42.8-82.8); PLATELET COUNT 237 10^3/uL (134-434); RBC 3.99 M/mm3 (4.00-5.60); RDW 16.3 % (11.9-15.9); WHITE BLOOD COUNT 7.3 K/mm3 (4.0-10.0)
[2023-03-01] MEDS: TAMSULOSIN HCL 0.4 MG CAP PO SCH (09:40)
[2023-03-01] MEDS: APIXABAN 5 MG TABLET PO SCH ×2 (09:40→21:29)
[2023-03-01] MEDS: FUROSEMIDE 40 MG/4 ML INJECTABLE VIAL IVPUSH SCH (09:40)
[2023-03-01] MEDS: MULTIVITAMINS (DAILY MVI) TABLET (FP) PO SCH (09:41)
[2023-03-01] MEDS: FINASTERIDE 5 MG TABLET (FP) PO SCH (09:42)
[2023-03-01] MEDS ORDERED: MYRBETRIQ 25 MG PO SCH (10:00)
[2023-03-01] MEDS: MIRTAZAPINE 15 MG TABLET (FP) PO SCH (21:29)
[2023-03-02] MEDS: INSULIN SLIDING SCALE (NOVOLOG) 1 VIAL SQ SCH ×3 (06:41→16:21)
[2023-03-02 07:10] LABS: BASO % 1.6 % (0-2.0); HEMATOCRIT 35.1 % (35.4-49); HEMOGLOBIN 11.3 GM/dL (11.7-16.9); LYMPH % 24.1 % (8-40); MCH 28.1 pg (25.7-33.7); MCHC 32.2 g/dl (32.0-35.9); MEAN CELL VOLUME 87.4 fl (80-96); MEAN PLT VOLUME 9.9 fl (7.5-11.1); MONO % 10.2 % (3.8-10.2); NEUT % 57.1 % (42.8-82.8); PLATELET COUNT 253 10^3/uL (134-434); RBC 4.01 M/mm3 (4.00-5.60); RDW 16.3 % (11.9-15.9); WHITE BLOOD COUNT 7.2 K/mm3 (4.0-10.0)
[2023-03-02 07:38] LABS: POTASSIUM 4.2 mmol/L (3.5-5.1)
[2023-03-02 07:43] LABS: CALCIUM 9.2 mg/dL (8.5-10.1)
[2023-03-02 07:44] LABS: ALBUMIN 3.1 g/dl (3.4-5.0); MAGNESIUM 2.1 mg/dL (1.8-2.4)
[2023-03-02 07:47] LABS: CREATININE 0.9 mg/dL (0.55-1.3); PHOSPHOROUS 4.2 mg/dL (2.5-4.9)
[2023-03-02 07:49] LABS: BILIRUBIN,TOTAL 0.5 mg/dL (0.2-1); TOT PROT 6.7 g/dl (6.4-8.2)
[2023-03-02] MEDS: TAMSULOSIN HCL 0.4 MG CAP PO SCH (10:36)
[2023-03-02] MEDS: APIXABAN 5 MG TABLET PO SCH (10:37)
[2023-03-02] MEDS: MULTIVITAMINS (DAILY MVI) TABLET (FP) PO SCH (10:37)
[2023-03-02] MEDS: FUROSEMIDE 40 MG/4 ML INJECTABLE VIAL IVPUSH SCH (10:37)
[2023-03-02] MEDS: FINASTERIDE 5 MG TABLET (FP) PO SCH (10:38)
[2023-03-02 11:14] VITALS: PULSE 73; RESP 18; TEMP 97.8
[2023-03-02 15:14] VITALS: BP 126/57
[2023-03-02] MEDS ORDERED: metoPROLOL SUCCINATE 25 MG TAB.SR.24H (FP) PO SCH (22:00)
[2023-03-03] MEDS ORDERED: metFORMIN HCL 500 MG TABLET (FP) PO SCH (07:00)
== END 2023-03-02 18:41 | disposition home or self-care (01) ==
LOC: JER 12:23 → UNDOADMOB 16:50 → JERBED 16:50 → INTOOBSV 16:50 → JERBED 19:12 → J4S 20:29
PROVIDERS: ADMIT Internal Medicine; ATTEND Internal Medicine
PROC: 3E033GC Introduction of Other Therapeutic Substance into Peripheral Vein, Percutaneous Approach (ICD-10-PCS; principal; 2023-02-28)
DX: I50.9 Heart failure, unspecified (principal); I48.91 Unspecified atrial fibrillation; R60.0 Localized edema; E11.9 Type 2 diabetes mellitus without complications; E78.5 Hyperlipidemia, unspecified; F03.90 Unspecified dementia, unspecified severity, without behavioral disturbance, psychotic disturbance, mood disturbance, and anxiety; M86.9 Osteomyelitis, unspecified; R79.9 Abnormal finding of blood chemistry, unspecified; F17.210 Nicotine dependence, cigarettes, uncomplicated
CPT/HCPCS: 36415; 71045-TC-FY; 80053; 80061; 82962; 83036; 83735; 83880; 84100; 84443; 84484; 85025; 85610; 85730; 86850; 86900; 86901; 87040; 93005; 93010; 93306-TC; 93970-TC; 96374; 99285-25; G0378